=== PATIENT | female | born 1995 | race Caucasian/White ===

== ENCOUNTER 2016-05-28 14:06 | Inpatient (IN) | payer MEDICAID ==
[~2016-05-28] VITALS: Ht 162.6 cm; Wt 96.7 kg
[~2016-05-28 14:06] MED LIST: DIVA250T45 PO; DIVA500T35 PO; ZIPR80CA2 PO
[2016-05-28] MEDS ORDERED: HALOPERIDOL 5 MG TABLET PO PRN (18:30)
[2016-05-28] MEDS ORDERED: PNEUMOCOCCAL VACCINE POLYVALENT 0.5 ML VIAL [PPSV23] IM ONE (18:45)
[2016-05-28] MEDS ORDERED: INFLUENZA VIRUS VACCINE QVS 2016-17 (3YR+)/PF 60 MCG/0.5 ML SYRINGE IM ONE (18:45)
[2016-05-28 18:49] VITALS: BP 139/79
[2016-05-28 19:39] VITALS: BP 130/78
[2016-05-28] MEDS: ZOLPIDEM TARTRATE 10 MG TABLET PO PRN (22:00)
[2016-05-28] MEDS: LORazepam 2 MG TABLET PO PRN (22:34)
[2016-05-29 02:15] VITALS: BP 116/70
[2016-05-29] MEDS: LORazepam 2 MG TABLET PO PRN ×2 (02:49→10:50)
[2016-05-29] MEDS: ZIPRASIDONE HCL 80 MG CAPSULE PO SCH ×2 (06:40→16:39)
[2016-05-29 08:08] LABS: BASOPHILS % (AUTO) 0.3 % (0.0-2.0); EOSINOPHILS % (AUTO) 0.4 % (1.0-6.0); HEMATOCRIT 35.5 % (36-46); HEMOGLOBIN 12.1 g/dL (12.0-16.0); LYMPHOCYTES # (AUTO) 2.2 K/uL (1.0-4.8); LYMPHOCYTES % (AUTO) 26.8 % (22.0-44.0); MEAN CORPUSCULAR HEMOGLOBIN 30.9 pg (26.0-34.0); MEAN CORPUSCULAR HGB CONC 33.9 G/dL (31.0-37.0); MEAN CORPUSCULAR VOLUME 91 fL (80-100); MONOCYTES # (AUTO) 0.7 K/uL (0.1-1.0); NEUTROPHILS # (AUTO) 5.2 K/uL (1.8-7.7); NEUTROPHILS % (AUTO) 63.5 % (40.0-70.0); PLATELET COUNT (AUTO) 259 K/uL (150-450); RED CELL DISTRIBUTION WIDTH 13.2 % (11.5-14.5); WHITE BLOOD COUNT (AUTO) 8.3 K/uL (4.5-11.0)
[2016-05-29 08:25] LABS: HEMOGLOBIN A1C 5.3 % (4.5-6.2)
[2016-05-29 08:36] VITALS: BP 128/74
[2016-05-29 08:39] LABS: ALANINE AMINOTRANSFERASE 51 U/L (12-78); ALBUMIN 3.9 g/dL (3.4-5.0); ANION GAP 8 mmol/L (8-16); ASPARTATE AMINOTRANSFERASE 55 U/L (15-37); BILIRUBIN,TOTAL 0.3 mg/dL (0.1-1.0); CALCIUM, TOTAL 9.4 mg/dL (8.8-10.5); CARBON DIOXIDE 29 mmol/L (22-29); CHLORIDE 100 mmol/L (98-107); CHOL/HDL RATIO 2.4 (3.9-5.7); CREATININE 0.59 mg/dL (0.60-1.30); GLOMERULAR FILTR. RATE CALC > 60 mL/min (>60); POTASSIUM 4.2 mmol/L (3.5-5.1); SODIUM SERUM 137 mmol/L (136-145); THYROID STIMULATING HORMONE 5.31 uIU/mL (0.36-3.74); TOTAL PROTEIN, SERUM 8.2 g/dL (6.4-8.2); UREA NITROGEN, BLOOD 15 mg/dL (7-18)
[2016-05-29] MEDS ORDERED: IBUPROFEN 400 MG TABLET PO PRN (14:00)
[2016-05-29 16:10] VITALS: BP 117/61
[2016-05-30 00:50] VITALS: BP 114/77
[2016-05-30] MEDS: ZOLPIDEM TARTRATE 10 MG TABLET PO PRN ×2 (00:55→20:15)
[2016-05-30 02:40] VITALS: BP 116/74
[2016-05-30] MEDS: LORazepam 2 MG TABLET PO PRN ×2 (02:44→12:17)
[2016-05-30 05:05] VITALS: BP 117/69
[2016-05-30] MEDS: ACETAMINOPHEN 325 MG TABLET PO PRN ×2 (05:10→15:17)
[2016-05-30] MEDS: ZIPRASIDONE HCL 80 MG CAPSULE PO SCH ×2 (06:38→16:33)
[2016-05-30 08:38] VITALS: BP 113/69
[2016-05-30 15:19] VITALS: BP 110/72
[2016-05-30 16:14] VITALS: BP 119/71
[2016-05-31] MEDS: LORazepam 2 MG TABLET PO PRN (02:22)
[2016-05-31 04:43] VITALS: BP 121/75
[2016-05-31] MEDS: ZIPRASIDONE HCL 80 MG CAPSULE PO SCH (06:57)
[2016-05-31 09:00] VITALS: BP 112/61
== END 2016-05-31 13:20 | disposition home or self-care (01) | DRG 750 ==
LOC: B3A 18:24 → EDSTATUS 18:33 → B3A 20:17
DX: F25.0 Schizoaffective disorder, bipolar type (principal); R45.851 Suicidal ideations; I10 Essential (primary) hypertension; F84.0 Autistic disorder; E03.9 Hypothyroidism, unspecified; F19.10 Other psychoactive substance abuse, uncomplicated; Z91.5 Personal history of self-harm; Z71.51 Drug abuse counseling and surveillance of drug abuser
CPT/HCPCS: 83036; 84439; 84443; 87081; 90471

== ENCOUNTER 2016-12-30 21:15 | Emergency (ER) | payer MEDICAID, OTHER ==
[~2016-12-30] VITALS: Ht 162.6 cm; Wt 96.0 kg
[~2016-12-30 21:15] MED LIST changes: -DIVA250T45 PO; -DIVA500T35 PO
[2016-12-30] MEDS ORDERED: ACETAMINOPHEN 500 MG TABLET PO ONE (22:45)
[2016-12-30 23:52] VITALS: BP 128/69
== END 2016-12-31 00:20 | disposition home or self-care (01) ==
LOC: EMS 21:16
DX: S00.93XA Contusion of unspecified part of head, initial encounter (principal); F84.0 Autistic disorder; F41.9 Anxiety disorder, unspecified; F32.9 Major depressive disorder, single episode, unspecified; W22.8XXA Striking against or struck by other objects, initial encounter; Y93.89 Activity, other specified; Y92.89 Other specified places as the place of occurrence of the external cause; Y99.8 Other external cause status
CPT/HCPCS: 70450; 81025; 99284

== ENCOUNTER 2017-03-22 17:56 | Emergency (ER) | payer OTHER ==
[~2017-03-22] VITALS: Ht 165.1 cm; Wt 93.2 kg
[2017-03-22 18:59] LABS: BASOPHILS # (AUTO) 0.04 K/uL (0.00-0.20); BASOPHILS % (AUTO) 0.5 % (0.0-2.0); EOSINOPHILS # (AUTO) 0.11 K/uL (0.00-0.70); EOSINOPHILS % (AUTO) 1.25 % (1.0-6.0); HEMOGLOBIN 11.5 g/dL (12.0-16.0); LYMPHOCYTES # (AUTO) 2.6 K/uL (1.0-4.8); LYMPHOCYTES % (AUTO) 30.5 % (22.0-44.0); MEAN CORPUSCULAR HGB CONC 33.8 G/dL (31.0-37.0); MEAN CORPUSCULAR VOLUME 95 fL (80-100); MONOCYTES # (AUTO) 0.9 K/uL (0.1-1.0); MONOCYTES % (AUTO) 10.3 % (2.0-9.0); NEUTROPHILS # (AUTO) 4.9 K/uL (1.8-7.7); NEUTROPHILS % (AUTO) 57.5 % (40.0-70.0); PLATELET COUNT (AUTO) 241 K/uL (150-450); RED BLOOD CELL COUNT(AUTO) 3.59 MIL/uL (4.00-5.20); RED CELL DISTRIBUTION WIDTH 13.9 % (11.5-14.5); WHITE BLOOD COUNT (AUTO) 8.5 K/uL (4.5-11.0)
[2017-03-22 19:07] LABS: ANION GAP 9 mmol/L (8-16); CALCIUM, TOTAL 9.2 mg/dL (8.8-10.5); CARBON DIOXIDE 28 mmol/L (22-29); CHLORIDE 102 mmol/L (98-107); CREATININE 0.76 mg/dL (0.60-1.30); GLOMERULAR FILTR. RATE CALC > 60 mL/min (>60); POTASSIUM 3.6 mmol/L (3.5-5.1); SODIUM SERUM 139 mmol/L (136-145); UREA NITROGEN, BLOOD 18 mg/dL (7-18)
[2017-03-22 19:13] LABS: ALANINE AMINOTRANSFERASE 36 U/L (12-78); ALBUMIN 3.6 g/dL (3.4-5.0); ASPARTATE AMINOTRANSFERASE 88 U/L (15-37); BILIRUBIN,TOTAL 0.2 mg/dL (0.1-1.0); TOTAL PROTEIN, SERUM 7.6 g/dL (6.4-8.2)
[2017-03-22] MEDS ORDERED: HALOPERIDOL 5 MG TABLET PO ONE ×2 (19:45→20:30)
[2017-03-22] MEDS ORDERED: DiphenhydrAMINE HCL 50 MG CAPSULE PO ONE (19:45)
[2017-03-22] MEDS ORDERED: LORazepam 2 MG TABLET PO ONE ×2 (19:45→20:30)
[2017-03-22] MEDS ORDERED: IBUPROFEN 600 MG TABLET PO ONE (20:00)
[2017-03-22 20:19] VITALS: BP 128/67
[2017-03-22] MEDS ORDERED: DiphenhydrAMINE HCL 25 MG CAPSULE PO ONE (20:30)
== END 2017-03-22 20:30 | disposition home or self-care (01) ==
LOC: EMS 17:57
DX: S09.90XA Unspecified injury of head, initial encounter (principal); F41.9 Anxiety disorder, unspecified; F32.9 Major depressive disorder, single episode, unspecified; Z88.8 Allergy status to other drugs, medicaments and biological substances; Y04.2XXA Assault by strike against or bumped into by another person, initial encounter; Y93.89 Activity, other specified; Y92.89 Other specified places as the place of occurrence of the external cause; Y99.8 Other external cause status
CPT/HCPCS: 36415; 80053; 80307; 85025; 99284; G0480

== ENCOUNTER 2017-09-17 18:56 | Inpatient (IN) | payer MEDICAID, OTHER ==
[~2017-09-17] VITALS: Ht 162.6 cm; Wt 81.5 kg
[2017-09-17] MEDS ORDERED: HALOPERIDOL 5 MG TABLET PO ONE (20:45)
[2017-09-17] MEDS ORDERED: LORazepam 2 MG TABLET PO ONE (20:45)
[2017-09-17 20:56] LABS: BASOPHILS % (AUTO) 0.3 % (0.0-2.0); EOSINOPHILS % (AUTO) 0.7 % (1.0-6.0); HEMATOCRIT 36.1 % (36-46); HEMOGLOBIN 12.2 g/dL (12.0-16.0); LYMPHOCYTES % (AUTO) 26.3 % (22.0-44.0); MEAN CORPUSCULAR HEMOGLOBIN 31.3 pg (26.0-34.0); MEAN CORPUSCULAR HGB CONC 33.9 G/dL (31.0-37.0); MEAN CORPUSCULAR VOLUME 92 fL (80-100); MONOCYTES # (AUTO) 0.7 K/uL (0.1-1.0); MONOCYTES % (AUTO) 9.2 % (2.0-9.0); NEUTROPHILS # (AUTO) 4.7 K/uL (1.8-7.7); NEUTROPHILS % (AUTO) 63.5 % (40.0-70.0); PLATELET COUNT (AUTO) 237 K/uL (150-450); RED BLOOD CELL COUNT(AUTO) 3.91 MIL/uL (4.00-5.20)
[2017-09-17 21:08] LABS: ANION GAP 6 mmol/L (8-16); CALCIUM, TOTAL 8.8 mg/dL (8.8-10.5); CARBON DIOXIDE 30 mmol/L (22-29); CHLORIDE 102 mmol/L (98-107); CREATININE 0.72 mg/dL (0.60-1.30); GLOMERULAR FILTR. RATE CALC > 60 mL/min (>60); GLUCOSE,RANDOM 97 mg/dL (70-110); POTASSIUM 3.9 mmol/L (3.5-5.1); SODIUM SERUM 138 mmol/L (136-145); UREA NITROGEN, BLOOD 7 mg/dL (7-18)
[2017-09-17 21:12] LABS: ALANINE AMINOTRANSFERASE 22 U/L (12-78); ALBUMIN 3.8 g/dL (3.4-5.0); ALKALINE PHOSPHATASE 44 U/L (46-116); ASPARTATE AMINOTRANSFERASE 27 U/L (15-37); BILIRUBIN,TOTAL 0.2 mg/dL (0.1-1.0); TOTAL PROTEIN, SERUM 8.1 g/dL (6.4-8.2)
[2017-09-17 21:21] LABS: SALICYLATE 0.8 mg/dL (2.8-20.0)
[2017-09-17 21:22] LABS: ACETAMINOPHEN < 2 mcg/mL (10-30)
[2017-09-17 21:49] LABS: AMPHET/METH SCREEN,URINE NEGATIVE (NEGATIVE); BARBITURATE SCREEN, URINE NEGATIVE (NEGATIVE); BENZODIAZEPINES SCREEN,URINE NEGATIVE (NEGATIVE); CANNABINOID SCREEN,URINE NEGATIVE (NEGATIVE); COCAINE SCREEN,URINE NEGATIVE (NEGATIVE); METHADONE SCREEN, URINE NEGATIVE (NEGATIVE); OPIATE SCREEN,URINE NEGATIVE (NEGATIVE); PHENCYCLIDINE SCREEN,URINE NEGATIVE (NEGATIVE)
[2017-09-18 02:23] LABS: APPEARANCE,URINE CLEAR (CLEAR); BILIRUBIN,URINE NEGATIVE (NEGATIVE); GLUCOSE, URINE (UA) NEGATIVE (NEGATIVE); KETONES,URINE NEGATIVE (NEGATIVE); OCCULT BLOOD,URINE NEGATIVE (NEGATIVE); PROTEIN,URINE NEGATIVE (NEGATIVE)
[2017-09-18 02:24] LABS: LEUKOCYTE ESTERASE ,URINE NEGATIVE (NEGATIVE); NITRATE,URINE NEGATIVE (NEGATIVE)
[2017-09-18 03:20] VITALS: BP 101/70
[2017-09-18 08:47] LABS: THYROID STIMULATING HORMONE 4.75 uIU/mL (0.36-3.74)
[2017-09-18 09:48] VITALS: BP 112/65
[2017-09-18] MEDS: HALOPERIDOL 5 MG TABLET PO PRN (10:16)
[2017-09-18] MEDS: LORazepam 2 MG TABLET PO PRN (10:17)
[2017-09-18] MEDS ORDERED: DiphenhydrAMINE HCL 50 MG/ML VIAL ONE (10:39)
[2017-09-18] MEDS ORDERED: LORazepam 2 MG/ML VIAL ONE (10:39)
[2017-09-18] MEDS ORDERED: HALOPERIDOL LACTATE 5 MG/ML VIAL ONE (10:39)
[2017-09-18] MEDS ORDERED: DiphenhydrAMINE HCL 50 MG/ML VIAL IM ONE (10:45)
[2017-09-18] MEDS ORDERED: HALOPERIDOL LACTATE 5 MG/ML VIAL IM ONE (10:45)
[2017-09-18] MEDS ORDERED: LORazepam 2 MG/ML VIAL IM ONE (10:45)
[2017-09-18 16:00] VITALS: BP 108/77
[2017-09-19 09:00] VITALS: BP 118/72
[2017-09-19 19:50] VITALS: BP 112/74
[2017-09-20] VITALS: BP 115/77
[2017-09-20] MEDS: ZOLPIDEM TARTRATE 10 MG TABLET PO PRN ×2 (00:03→23:08)
[2017-09-20 09:58] VITALS: BP 134/73
[2017-09-20] MEDS: LORazepam 2 MG TABLET PO PRN (16:28)
[2017-09-20 17:16] VITALS: BP 130/64
[2017-09-20] MEDS: DIVALPROEX SODIUM 250 MG DR TABLET PO SCH (21:13)
[2017-09-21] MEDS: ZIPRASIDONE HCL 80 MG CAPSULE PO SCH ×2 (08:33→12:07)
[2017-09-21 09:39] VITALS: BP 107/67
[2017-09-21] MEDS ORDERED: ZIPRASIDONE HCL 80 MG CAPSULE PO SCH (12:00)
[2017-09-21 17:38] VITALS: BP 102/60
[2017-09-21] MEDS: DIVALPROEX SODIUM 250 MG DR TABLET PO SCH (20:17)
[2017-09-21] MEDS: ZOLPIDEM TARTRATE 10 MG TABLET PO PRN (21:28)
[2017-09-22 05:02] VITALS: BP 112/72
[2017-09-22] MEDS: ZIPRASIDONE HCL 80 MG CAPSULE PO SCH ×2 (08:23→11:57)
[2017-09-22 09:43] VITALS: BP 116/77
[2017-09-22] MEDS: LORazepam 2 MG TABLET PO PRN (09:55)
[2017-09-22 16:35] VITALS: BP 114/63
[2017-09-22] MEDS: DIVALPROEX SODIUM 250 MG DR TABLET PO SCH (20:22)
[2017-09-23 00:40] VITALS: BP 112/72
[2017-09-23] MEDS: ZOLPIDEM TARTRATE 10 MG TABLET PO PRN (00:41)
[2017-09-23] MEDS: LORazepam 2 MG TABLET PO PRN (03:49)
[2017-09-23 08:36] VITALS: BP 116/69
[2017-09-23] MEDS: ZIPRASIDONE HCL 80 MG CAPSULE PO SCH ×2 (08:49→11:54)
[2017-09-23 17:15] VITALS: BP 100/59
[2017-09-23] MEDS: DIVALPROEX SODIUM 250 MG DR TABLET PO SCH (20:01)
[2017-09-23] MEDS: TraZODone HCL 50 MG TABLET PO PRN (20:58)
[2017-09-24] MEDS: ZOLPIDEM TARTRATE 10 MG TABLET PO PRN (00:06)
[2017-09-24] MEDS: LORazepam 2 MG TABLET PO PRN (04:54)
[2017-09-24 04:57] VITALS: BP 117/65
[2017-09-24 08:05] VITALS: BP 126/71
[2017-09-24] MEDS: ZIPRASIDONE HCL 80 MG CAPSULE PO SCH ×2 (08:56→12:58)
[2017-09-24 17:00] VITALS: BP 98/45
[2017-09-24] MEDS: DIVALPROEX SODIUM 250 MG DR TABLET PO SCH (20:55)
[2017-09-25] MEDS: ZIPRASIDONE HCL 80 MG CAPSULE PO SCH ×2 (08:00→12:00)
[2017-09-25] MEDS: FLUoxetine HCL 20 MG CAPSULE PO SCH (11:45)
[2017-09-25] MEDS ORDERED: LORazepam 2 MG/ML VIAL ONE (13:02)
[2017-09-25] MEDS ORDERED: DiphenhydrAMINE HCL 50 MG/ML VIAL ONE (13:02)
[2017-09-25] MEDS ORDERED: HALOPERIDOL LACTATE 5 MG/ML VIAL ONE (13:02)
[2017-09-25] MEDS ORDERED: HALOPERIDOL LACTATE 5 MG/ML VIAL IM ONE ×2 (13:15→19:45)
[2017-09-25] MEDS ORDERED: DiphenhydrAMINE HCL 50 MG/ML VIAL IM ONE ×2 (13:15→19:45)
[2017-09-25] MEDS ORDERED: LORazepam 2 MG/ML VIAL IM ONE ×2 (13:15→19:45)
[2017-09-25 16:30] VITALS: BP 124/77
[2017-09-25] MEDS ORDERED: ACETAMINOPHEN 325 MG TABLET PO PRN (19:00)
[2017-09-25] MEDS ORDERED: IBUPROFEN 600 MG TABLET PO PRN (19:00)
[2017-09-25 19:21] VITALS: BP 121/76
[2017-09-25] MEDS: DIVALPROEX SODIUM 250 MG DR TABLET PO SCH (20:40)
[2017-09-25] MEDS: TraZODone HCL 50 MG TABLET PO PRN (20:41)
[2017-09-25] MEDS: ZOLPIDEM TARTRATE 10 MG TABLET PO PRN (21:44)
[2017-09-26] MEDS: ZIPRASIDONE HCL 80 MG CAPSULE PO SCH ×2 (08:49→12:00)
[2017-09-26] MEDS: FLUoxetine HCL 20 MG CAPSULE PO SCH (08:51)
[2017-09-26 09:41] VITALS: BP 105/64
[2017-09-26] MEDS: DIVALPROEX SODIUM 250 MG DR TABLET PO SCH (20:01)
[2017-09-26 22:14] VITALS: BP 112/61
[2017-09-27 00:10] VITALS: BP 117/75
[2017-09-27] MEDS: ZOLPIDEM TARTRATE 10 MG TABLET PO PRN (00:15)
[2017-09-27] MEDS: LORazepam 2 MG TABLET PO PRN ×2 (00:15→18:00)
[2017-09-27] MEDS: ZIPRASIDONE HCL 80 MG CAPSULE PO SCH ×2 (08:05→12:29)
[2017-09-27] MEDS: FLUoxetine HCL 20 MG CAPSULE PO SCH (08:30)
[2017-09-27 09:35] VITALS: BP 113/63
[2017-09-27 16:00] VITALS: BP 113/65
[2017-09-27] MEDS: HALOPERIDOL 5 MG TABLET PO PRN (16:33)
[2017-09-27] MEDS: DIVALPROEX SODIUM 250 MG DR TABLET PO SCH (20:35)
[2017-09-28] MEDS: LORazepam 2 MG TABLET PO PRN (01:30)
[2017-09-28] MEDS: ZOLPIDEM TARTRATE 10 MG TABLET PO PRN (01:30)
[2017-09-28 08:20] VITALS: BP 123/76
[2017-09-28] MEDS: ZIPRASIDONE HCL 80 MG CAPSULE PO SCH ×3 (08:39→12:48)
[2017-09-28] MEDS: FLUoxetine HCL 20 MG CAPSULE PO SCH ×2 (08:42→09:00)
[2017-09-28] MEDS: DIVALPROEX SODIUM 250 MG DR TABLET PO SCH (21:08)
[2017-09-28 21:29] VITALS: BP 130/81
[2017-09-29 08:27] VITALS: BP 124/70
[2017-09-29] MEDS: ZIPRASIDONE HCL 80 MG CAPSULE PO SCH ×2 (09:19→12:18)
[2017-09-29] MEDS: FLUoxetine HCL 20 MG CAPSULE PO SCH (09:19)
[2017-09-29] MEDS ORDERED: FLUO-191 PO (12:58)
[2017-09-29] MEDS ORDERED: DIVA500T35 PO (12:59)
== END 2017-09-29 17:15 | disposition home or self-care (01) | DRG 750 ==
LOC: EMS 18:57 → 3EI 09-18 01:45 → 3EC 09-25 15:22
PROVIDERS: ADMIT Psychiatry & Neurology Psychiatry; ATTEND Psychiatry & Neurology Psychiatry
DX: F25.1 Schizoaffective disorder, depressive type (principal); F79 Unspecified intellectual disabilities; F32.9 Major depressive disorder, single episode, unspecified; F84.0 Autistic disorder; F41.9 Anxiety disorder, unspecified; E03.9 Hypothyroidism, unspecified; Z88.8 Allergy status to other drugs, medicaments and biological substances; Z79.899 Other long term (current) drug therapy
CPT/HCPCS: 84439; 84443; 93005; 99285; G0480; G0481; J1200; J1630; J2060

== ENCOUNTER 2017-12-08 21:59 | Emergency (ER) | payer MEDICAID, OTHER ==
[~2017-12-08] VITALS: Ht 167.6 cm; Wt 90.9 kg
[~2017-12-08 21:59] MED LIST changes: +DIVA-78 PO; +FLUO-191 PO
[2017-12-08] MEDS ORDERED: TRAZ-219 PO (22:05)
[2017-12-08] MEDS ORDERED: SODIUM CHLORIDE 0.9% 1,000 ML IV ONE (22:45)
[2017-12-08 22:46] LABS: BASOPHILS % (AUTO) 0.4 % (0.0-2.0); EOSINOPHILS % (AUTO) 0.6 % (1.0-6.0); HEMATOCRIT 34.5 % (36-46); HEMOGLOBIN 11.9 g/dL (12.0-16.0); LYMPHOCYTES % (AUTO) 31.5 % (22.0-44.0); MEAN CORPUSCULAR HEMOGLOBIN 31.6 pg (26.0-34.0); MEAN CORPUSCULAR HGB CONC 34.4 G/dL (31.0-37.0); MEAN CORPUSCULAR VOLUME 92 fL (80-100); MONOCYTES # (AUTO) 0.9 K/uL (0.1-1.0); MONOCYTES % (AUTO) 9.6 % (2.0-9.0); NEUTROPHILS # (AUTO) 5.6 K/uL (1.8-7.7); NEUTROPHILS % (AUTO) 57.9 % (40.0-70.0); PLATELET COUNT (AUTO) 216 K/uL (150-450); RED BLOOD CELL COUNT(AUTO) 3.75 MIL/uL (4.00-5.20); RED CELL DISTRIBUTION WIDTH 13.4 % (11.5-14.5)
[2017-12-08 22:57] LABS: ANION GAP 7 mmol/L (8-16); CALCIUM, TOTAL 8.6 mg/dL (8.8-10.5); CARBON DIOXIDE 28 mmol/L (22-29); CHLORIDE 104 mmol/L (98-107); GLOMERULAR FILTR. RATE CALC > 60 mL/min (>60); GLUCOSE,RANDOM 114 mg/dL (70-110); POTASSIUM 3.3 mmol/L (3.5-5.1); SODIUM SERUM 139 mmol/L (136-145); UREA NITROGEN, BLOOD 13 mg/dL (7-18)
[2017-12-08 23:03] LABS: ALANINE AMINOTRANSFERASE 18 U/L (12-78); ALBUMIN 3.3 g/dL (3.4-5.0); ALKALINE PHOSPHATASE 37 U/L (46-116); ASPARTATE AMINOTRANSFERASE 16 U/L (15-37); BILIRUBIN,TOTAL 0.2 mg/dL (0.1-1.0); TOTAL PROTEIN, SERUM 7.3 g/dL (6.4-8.2); VALPROIC ACID 54 mcg/mL (50-100)
[2017-12-08 23:16] LABS: ACETAMINOPHEN < 2 mcg/mL (10-30)
[2017-12-08 23:27] LABS: SALICYLATE < 2.8 mg/dL (2.8-20.0)
[2017-12-09 01:15] LABS: AMPHET/METH SCREEN,URINE NEGATIVE (NEGATIVE); BARBITURATE SCREEN, URINE NEGATIVE (NEGATIVE); BENZODIAZEPINES SCREEN,URINE NEGATIVE (NEGATIVE); CANNABINOID SCREEN,URINE NEGATIVE (NEGATIVE); COCAINE SCREEN,URINE NEGATIVE (NEGATIVE); METHADONE SCREEN, URINE NEGATIVE (NEGATIVE); OPIATE SCREEN,URINE NEGATIVE (NEGATIVE); PHENCYCLIDINE SCREEN,URINE NEGATIVE (NEGATIVE)
[2017-12-09] MEDS ORDERED: SODIUM CHLORIDE 0.9% 1,000 ML IV ONE (03:45)
[2017-12-09 04:46] VITALS: BP 110/61
== END 2017-12-09 05:15 | disposition home or self-care (01) ==
LOC: EMS 22:01
DX: T42.6X1A Poisoning by other antiepileptic and sedative-hypnotic drugs, accidental (unintentional), initial encounter (principal); T43.591A Poisoning by other antipsychotics and neuroleptics, accidental (unintentional), initial encounter; F41.9 Anxiety disorder, unspecified; F32.9 Major depressive disorder, single episode, unspecified; Z88.8 Allergy status to other drugs, medicaments and biological substances; Y92.89 Other specified places as the place of occurrence of the external cause
CPT/HCPCS: 36415; 80053; 80164; 80307; 84703; 85025; 93005; 93041; 99291; G0480 ×2; G0481; J7030 ×2

== ENCOUNTER 2018-04-16 11:19 | Emergency (ER) | payer OTHER ==
[~2018-04-16] VITALS: Ht 167.6 cm; Wt 90.9 kg
[~2018-04-16 11:19] MED LIST changes: -FLUO-191 PO; +TRAZ-219 PO
[2018-04-16 13:19] VITALS: BP 116/64
== END 2018-04-16 13:36 | disposition home or self-care (01) ==
LOC: EDUNIT# 11:19 → EMS 11:20
DX: F84.0 Autistic disorder (principal); F32.9 Major depressive disorder, single episode, unspecified; F41.9 Anxiety disorder, unspecified; Z76.0 Encounter for issue of repeat prescription; Z88.8 Allergy status to other drugs, medicaments and biological substances

== ENCOUNTER 2018-09-24 22:11 | Emergency (ER) | payer OTHER ==
[~2018-09-24] VITALS: Ht 167.6 cm; Wt 72.7 kg
[~2018-09-24 22:11] MED LIST changes: -TRAZ-219 PO; +TRAZ-252 PO
[2018-09-24] MEDS ORDERED: HALO5TAB2 PO (22:27)
[2018-09-24 22:40] LABS: BASOPHILS % (AUTO) 0.3 % (0.0-2.0); EOSINOPHILS % (AUTO) 0.6 % (1.0-6.0); HEMATOCRIT 34.6 % (36-46); HEMOGLOBIN 11.7 g/dL (12.0-16.0); LYMPHOCYTES % (AUTO) 30.9 % (22.0-44.0); MEAN CORPUSCULAR HEMOGLOBIN 30.6 pg (26.0-34.0); MEAN CORPUSCULAR HGB CONC 33.8 G/dL (31.0-37.0); MEAN CORPUSCULAR VOLUME 91 fL (80-100); MONOCYTES # (AUTO) 1.1 K/uL (0.1-1.0); MONOCYTES % (AUTO) 11.6 % (2.0-9.0); NEUTROPHILS # (AUTO) 5.5 K/uL (1.8-7.7); NEUTROPHILS % (AUTO) 56.6 % (40.0-70.0); PLATELET COUNT (AUTO) 226 K/uL (150-450); RED BLOOD CELL COUNT(AUTO) 3.82 MIL/uL (4.00-5.20)
[2018-09-24 22:49] LABS: ANION GAP 9 mmol/L (8-16); CALCIUM, TOTAL 8.7 mg/dL (8.8-10.5); CARBON DIOXIDE 27 mmol/L (22-29); CHLORIDE 106 mmol/L (98-107); CREATININE 0.55 mg/dL (0.60-1.30); GLOMERULAR FILTR. RATE CALC > 60 mL/min (>60); GLUCOSE,RANDOM 147 mg/dL (70-110); POTASSIUM 3.3 mmol/L (3.5-5.1); SODIUM SERUM 142 mmol/L (136-145); UREA NITROGEN, BLOOD 8 mg/dL (7-18)
[2018-09-24 22:56] LABS: AMPHET/METH SCREEN,URINE NEGATIVE (NEGATIVE); BARBITURATE SCREEN, URINE NEGATIVE (NEGATIVE); BENZODIAZEPINES SCREEN,URINE NEGATIVE (NEGATIVE); CANNABINOID SCREEN,URINE NEGATIVE (NEGATIVE); COCAINE SCREEN,URINE NEGATIVE (NEGATIVE); METHADONE SCREEN, URINE NEGATIVE (NEGATIVE); OPIATE SCREEN,URINE NEGATIVE (NEGATIVE); PHENCYCLIDINE SCREEN,URINE NEGATIVE (NEGATIVE)
[2018-09-24 23:00] LABS: ALANINE AMINOTRANSFERASE 19 U/L (12-78); ALBUMIN 3.4 g/dL (3.4-5.0); ALKALINE PHOSPHATASE 67 U/L (46-116); ASPARTATE AMINOTRANSFERASE 22 U/L (15-37); BILIRUBIN,TOTAL 0.3 mg/dL (0.1-1.0); HCG,QUANTITATIVE < 1 mIU/mL (0-6); TOTAL PROTEIN, SERUM 7.9 g/dL (6.4-8.2)
[2018-09-24 23:30] VITALS: BP 121/78
[2018-09-24] MEDS ORDERED: ONDANSETRON HCL 4 MG TABLET PO ONE (23:30)
== END 2018-09-24 23:41 | disposition home or self-care (01) ==
LOC: EMS 22:13
DX: F10.129 Alcohol abuse with intoxication, unspecified (principal); F41.9 Anxiety disorder, unspecified; F32.9 Major depressive disorder, single episode, unspecified; F39 Unspecified mood [affective] disorder; F84.0 Autistic disorder; Z79.899 Other long term (current) drug therapy; Z88.8 Allergy status to other drugs, medicaments and biological substances; Y90.6 Blood alcohol level of 120-199 mg/100 ml
CPT/HCPCS: 36415; 80053; 80307; 84702; 85025; 99283; G0480; Q0162; 51701

== ENCOUNTER 2018-12-19 22:25 | Inpatient (IN) | payer MEDICAID, OTHER ==
[~2018-12-19] VITALS: Ht 165.1 cm; Wt 102.5 kg
[~2018-12-19 22:25] MED LIST changes: +HALO5TAB2 PO
[2018-12-19 23:13] LABS: BASOPHILS % (AUTO) 0.3 % (0.0-2.0); EOSINOPHILS % (AUTO) 0.9 % (1.0-6.0); HEMATOCRIT 33.8 % (36-46); HEMOGLOBIN 11.4 g/dL (12.0-16.0); LYMPHOCYTES # (AUTO) 3.1 K/uL (1.0-4.8); LYMPHOCYTES % (AUTO) 32.3 % (22.0-44.0); MEAN CORPUSCULAR HEMOGLOBIN 32.1 pg (26.0-34.0); MEAN CORPUSCULAR HGB CONC 33.7 G/dL (31.0-37.0); MEAN CORPUSCULAR VOLUME 95 fL (80-100); MONOCYTES % (AUTO) 10.7 % (2.0-9.0); NEUTROPHILS # (AUTO) 5.4 K/uL (1.8-7.7); NEUTROPHILS % (AUTO) 55.8 % (40.0-70.0); PLATELET COUNT (AUTO) 272 K/uL (150-450); RED BLOOD CELL COUNT(AUTO) 3.55 MIL/uL (4.00-5.20); RED CELL DISTRIBUTION WIDTH 13.8 % (11.5-14.5)
[2018-12-19 23:25] LABS: ANION GAP 10 mmol/L (8-16); CALCIUM, TOTAL 9.1 mg/dL (8.8-10.5); CARBON DIOXIDE 24 mmol/L (22-29); CHLORIDE 104 mmol/L (98-107); CREATININE 0.62 mg/dL (0.60-1.30); GLOMERULAR FILTR. RATE CALC > 60 mL/min (>60); GLUCOSE,RANDOM 123 mg/dL (70-110); POTASSIUM 3.5 mmol/L (3.5-5.1); SODIUM SERUM 138 mmol/L (136-145); UREA NITROGEN, BLOOD 13 mg/dL (7-18)
[2018-12-19 23:31] LABS: ALANINE AMINOTRANSFERASE 23 U/L (12-78); ALBUMIN 3.5 g/dL (3.4-5.0); ALKALINE PHOSPHATASE 55 U/L (46-116); ASPARTATE AMINOTRANSFERASE 21 U/L (15-37); BILIRUBIN,TOTAL 0.2 mg/dL (0.1-1.0); TOTAL PROTEIN, SERUM 7.7 g/dL (6.4-8.2)
[2018-12-20] MEDS ORDERED: 0.9% SODIUM CHLORIDE 10 ML SYRINGE IVP PRN (01:00)
[2018-12-20 01:15] LABS: HCG,QUANTITATIVE < 1 mIU/mL (0-6)
[2018-12-20 01:21] LABS: APPEARANCE,URINE CLOUDY (CLEAR); BILIRUBIN,URINE NEGATIVE (NEGATIVE); GLUCOSE, URINE (UA) NEGATIVE (NEGATIVE); KETONES,URINE 15 mg/dL (NEGATIVE); LEUKOCYTE ESTERASE ,URINE NEGATIVE (NEGATIVE); NITRATE,URINE NEGATIVE (NEGATIVE); OCCULT BLOOD,URINE TRACE (NEGATIVE); PROTEIN,URINE NEGATIVE (NEGATIVE)
[2018-12-20 01:27] LABS: AMPHET/METH SCREEN,URINE NEGATIVE (NEGATIVE); BARBITURATE SCREEN, URINE NEGATIVE (NEGATIVE); BENZODIAZEPINES SCREEN,URINE NEGATIVE (NEGATIVE); CANNABINOID SCREEN,URINE NEGATIVE (NEGATIVE); COCAINE SCREEN,URINE NEGATIVE (NEGATIVE); METHADONE SCREEN, URINE NEGATIVE (NEGATIVE); OPIATE SCREEN,URINE NEGATIVE (NEGATIVE)
[2018-12-20 01:28] LABS: PHENCYCLIDINE SCREEN,URINE NEGATIVE (NEGATIVE)
[2018-12-20 01:38] LABS: BACTERIA,URINE Few /HPF (None Seen); RBC,URINE 0-2 /HPF (0-2); SQUAMOUS EPITHELIAL CELL,UR Few /LPF (None Seen); WBC,URINE 0-2 /HPF (0-5)
[2018-12-20] MEDS: ACETAMINOPHEN 325 MG TABLET PO PRN ×3 (03:00→17:14)
[2018-12-20 03:33] VITALS: BP 117/81
[2018-12-20] MEDS: LORazepam 2 MG TABLET PO PRN ×2 (03:42→17:13)
[2018-12-20 08:15] VITALS: BP 128/67
[2018-12-20] MEDS: DIVALPROEX SODIUM 250 MG DR TABLET PO SCH (16:12)
[2018-12-20] MEDS: ZIPRASIDONE HCL 80 MG CAPSULE PO SCH (16:12)
[2018-12-20 16:42] VITALS: BP 110/71
[2018-12-20 17:13] VITALS: BP 129/73
[2018-12-20] MEDS: TraZODone HCL 50 MG TABLET PO SCH (20:19)
[2018-12-21 00:53] VITALS: BP 107/64
[2018-12-21] MEDS: ZIPRASIDONE HCL 80 MG CAPSULE PO SCH ×2 (06:53→16:34)
[2018-12-21] MEDS: DIVALPROEX SODIUM 250 MG DR TABLET PO SCH (08:21)
[2018-12-21 08:28] VITALS: BP 125/84
[2018-12-21 08:33] LABS: FREE T4 (FREE THYROXINE) 1.01 ng/dL (0.76-1.46); THYROID STIMULATING HORMONE 4.79 uIU/mL (0.36-3.74)
[2018-12-21] MEDS ORDERED: DIVA-76 PO (13:39)
[2018-12-21 16:02] VITALS: BP 122/84
[2018-12-21] MEDS: DIVALPROEX SODIUM 500 MG DR TABLET PO SCH (16:34)
[2018-12-21] MEDS: FERROUS SULFATE 325 MG EC TABLET PO SCH (16:34)
[2018-12-21] MEDS: LORazepam 2 MG TABLET PO PRN (16:35)
[2018-12-21] MEDS: TraZODone HCL 50 MG TABLET PO SCH (20:20)
[2018-12-22 02:48] VITALS: BP 120/81
[2018-12-22] MEDS: LORazepam 2 MG TABLET PO PRN ×2 (05:16→15:26)
[2018-12-22] MEDS: ZIPRASIDONE HCL 80 MG CAPSULE PO SCH ×2 (06:22→16:01)
[2018-12-22] MEDS: FERROUS SULFATE 325 MG EC TABLET PO SCH ×2 (06:22→16:01)
[2018-12-22] MEDS ORDERED: CloNIDine HCL 0.1 MG TABLET PO PRN (06:45)
[2018-12-22] MEDS ORDERED: NICOTINE 14 MG/24 HOUR PATCH TD PRN (06:45)
[2018-12-22] MEDS ORDERED: ALBUTEROL SULFATE HFA 90 MCG/PUFF 8 GM INHALER IH PRN (06:45)
[2018-12-22] MEDS ORDERED: GuaiFENesin/D-METHORPHAN [SUGAR-FREE] 200-20MG/10 ML SYRUP UDCUP PO PRN (06:45)
[2018-12-22] MEDS ORDERED: MAGNESIUM HYDROXIDE SUSPENSION 30 ML UDCUP PO PRN (06:45)
[2018-12-22] MEDS ORDERED: ONDANSETRON HCL 4 MG TABLET PO PRN (06:45)
[2018-12-22] MEDS ORDERED: PETROLATUM,WHITE 28 GM JELLY TP PRN (06:45)
[2018-12-22] MEDS ORDERED: MAG HYDROX/AL HYDROX/SIMETH ES 30 ML SUSPENSION UDCUP PO PRN (06:45)
[2018-12-22] MEDS ORDERED: DOCUSATE SODIUM 100 MG CAPSULE PO PRN (06:45)
[2018-12-22] MEDS ORDERED: LOPERAMIDE HCL 2 MG CAPSULE PO PRN (06:45)
[2018-12-22] MEDS: DIVALPROEX SODIUM 500 MG DR TABLET PO SCH ×2 (08:06→16:01)
[2018-12-22 08:07] VITALS: BP 123/60
[2018-12-22 16:01] VITALS: BP 135/61
[2018-12-22 17:17] VITALS: BP 126/71
[2018-12-22] MEDS: ACETAMINOPHEN 325 MG TABLET PO PRN (17:17)
[2018-12-22 17:26] VITALS: BP 138/87
[2018-12-22] MEDS: TraZODone HCL 50 MG TABLET PO SCH (20:16)
[2018-12-23] MEDS: ZOLPIDEM TARTRATE 10 MG TABLET PO PRN ×2 (00:18→20:46)
[2018-12-23 00:26] VITALS: BP 137/98
[2018-12-23] MEDS: ZIPRASIDONE HCL 80 MG CAPSULE PO SCH ×2 (06:51→16:14)
[2018-12-23] MEDS: FERROUS SULFATE 325 MG EC TABLET PO SCH ×2 (06:51→16:14)
[2018-12-23 08:00] VITALS: BP 105/58
[2018-12-23] MEDS: DIVALPROEX SODIUM 500 MG DR TABLET PO SCH ×2 (08:24→16:14)
[2018-12-23 16:09] VITALS: BP 139/81
[2018-12-23] MEDS: LORazepam 2 MG TABLET PO PRN (17:21)
[2018-12-23] MEDS: IBUPROFEN 400 MG TABLET PO PRN (17:54)
[2018-12-23] MEDS: TraZODone HCL 50 MG TABLET PO SCH (20:45)
[2018-12-24 04:39] VITALS: BP 103/64
[2018-12-24] MEDS: FERROUS SULFATE 325 MG EC TABLET PO SCH ×2 (07:00→16:33)
[2018-12-24] MEDS: ZIPRASIDONE HCL 80 MG CAPSULE PO SCH ×2 (07:07→16:32)
[2018-12-24] MEDS ORDERED: LORazepam 2 MG/ML VIAL ONE (07:53)
[2018-12-24] MEDS ORDERED: HALOPERIDOL LACTATE 5 MG/ML VIAL ONE (07:53)
[2018-12-24] MEDS ORDERED: DiphenhydrAMINE HCL 50 MG/ML VIAL ONE (07:54)
[2018-12-24] MEDS ORDERED: HALOPERIDOL LACTATE 5 MG/ML VIAL IM ONE (08:00)
[2018-12-24] MEDS ORDERED: DiphenhydrAMINE HCL 50 MG/ML VIAL IM ONE (08:00)
[2018-12-24] MEDS ORDERED: LORazepam 2 MG/ML VIAL IM ONE (08:00)
[2018-12-24 08:19] VITALS: BP 149/92
[2018-12-24] MEDS: DIVALPROEX SODIUM 500 MG DR TABLET PO SCH ×2 (08:21→16:33)
[2018-12-24 08:30] VITALS: BP 113/66
[2018-12-24] MEDS: ACETAMINOPHEN 325 MG TABLET PO PRN (15:00)
[2018-12-24 16:21] VITALS: BP 120/86
[2018-12-24] MEDS: IBUPROFEN 400 MG TABLET PO PRN (17:11)
[2018-12-24] MEDS: TraZODone HCL 50 MG TABLET PO SCH (20:55)
[2018-12-25 02:07] VITALS: BP 116/73
[2018-12-25] MEDS: ZOLPIDEM TARTRATE 10 MG TABLET PO PRN ×2 (02:10→20:05)
[2018-12-25] MEDS: LORazepam 2 MG TABLET PO PRN ×2 (02:10→18:59)
[2018-12-25] MEDS: ZIPRASIDONE HCL 80 MG CAPSULE PO SCH ×2 (07:07→16:02)
[2018-12-25] MEDS: FERROUS SULFATE 325 MG EC TABLET PO SCH ×2 (07:08→16:02)
[2018-12-25] MEDS: DIVALPROEX SODIUM 500 MG DR TABLET PO SCH ×2 (08:11→16:02)
[2018-12-25 14:38] VITALS: BP 116/62
[2018-12-25 16:04] VITALS: BP 141/79
[2018-12-25 17:52] VITALS: BP 138/72
[2018-12-25] MEDS: IBUPROFEN 400 MG TABLET PO PRN (17:52)
[2018-12-25] MEDS: TraZODone HCL 50 MG TABLET PO SCH (20:04)
[2018-12-26 03:15] VITALS: BP 140/80
[2018-12-26] MEDS: LORazepam 2 MG TABLET PO PRN ×2 (05:30→23:09)
[2018-12-26] MEDS: ZIPRASIDONE HCL 80 MG CAPSULE PO SCH ×2 (06:31→16:21)
[2018-12-26] MEDS: FERROUS SULFATE 325 MG EC TABLET PO SCH ×2 (06:31→16:21)
[2018-12-26] MEDS: DIVALPROEX SODIUM 500 MG DR TABLET PO SCH ×2 (08:04→16:21)
[2018-12-26 08:16] VITALS: BP 132/81
[2018-12-26] MEDS: TraZODone HCL 50 MG TABLET PO SCH (20:08)
[2018-12-27] MEDS: FERROUS SULFATE 325 MG EC TABLET PO SCH ×2 (06:45→16:14)
[2018-12-27] MEDS: ZIPRASIDONE HCL 80 MG CAPSULE PO SCH ×2 (06:45→16:14)
[2018-12-27 08:28] VITALS: BP 117/70
[2018-12-27] MEDS: DIVALPROEX SODIUM 500 MG DR TABLET PO SCH ×2 (09:26→16:14)
[2018-12-27] MEDS: LORazepam 2 MG TABLET PO PRN ×2 (09:26→17:42)
[2018-12-27] MEDS ORDERED: DiphenhydrAMINE HCL 50 MG/ML VIAL IM ONE (12:30)
[2018-12-27] MEDS ORDERED: HALOPERIDOL LACTATE 5 MG/ML VIAL IM ONE (12:30)
[2018-12-27] MEDS ORDERED: LORazepam 2 MG/ML VIAL IM ONE (12:30)
[2018-12-27] MEDS ORDERED: LORazepam 2 MG/ML VIAL ONE (12:32)
[2018-12-27] MEDS ORDERED: HALOPERIDOL LACTATE 5 MG/ML VIAL ONE (12:32)
[2018-12-27] MEDS ORDERED: DiphenhydrAMINE HCL 50 MG/ML VIAL ONE (12:33)
[2018-12-27 13:05] VITALS: BP 97/57
[2018-12-27 16:10] VITALS: BP 127/74
[2018-12-27] MEDS: TraZODone HCL 50 MG TABLET PO SCH (20:11)
[2018-12-28] MEDS: ZIPRASIDONE HCL 80 MG CAPSULE PO SCH ×2 (06:39→16:40)
[2018-12-28] MEDS: FERROUS SULFATE 325 MG EC TABLET PO SCH ×2 (06:39→16:40)
[2018-12-28] MEDS ORDERED: DiphenhydrAMINE HCL 50 MG/ML VIAL IM ONE ×2 (08:00→15:00)
[2018-12-28] MEDS ORDERED: HALOPERIDOL LACTATE 5 MG/ML VIAL IM ONE ×2 (08:00→15:00)
[2018-12-28] MEDS ORDERED: LORazepam 2 MG/ML VIAL IM ONE ×2 (08:00→15:00)
[2018-12-28] MEDS: IBUPROFEN 400 MG TABLET PO PRN (08:38)
[2018-12-28 08:45] VITALS: BP 103/69
[2018-12-28] MEDS: DIVALPROEX SODIUM 500 MG DR TABLET PO SCH ×2 (09:42→16:40)
[2018-12-28] MEDS: HALOPERIDOL 5 MG TABLET PO PRN ×2 (16:40→23:00)
[2018-12-28] MEDS: LORazepam 2 MG TABLET PO PRN ×2 (16:40→23:00)
[2018-12-28] MEDS: TraZODone HCL 50 MG TABLET PO SCH (20:35)
[2018-12-28] MEDS: ZOLPIDEM TARTRATE 10 MG TABLET PO PRN (20:35)
[2018-12-29 03:26] VITALS: BP 99/65
[2018-12-29] MEDS: ACETAMINOPHEN 325 MG TABLET PO PRN (03:34)
[2018-12-29] MEDS: LORazepam 2 MG TABLET PO PRN ×3 (04:05→16:50)
[2018-12-29] MEDS: FERROUS SULFATE 325 MG EC TABLET PO SCH ×2 (06:55→16:50)
[2018-12-29] MEDS: ZIPRASIDONE HCL 80 MG CAPSULE PO SCH ×2 (06:55→16:50)
[2018-12-29 08:00] VITALS: BP 103/75
[2018-12-29] MEDS: DIVALPROEX SODIUM 500 MG DR TABLET PO SCH ×2 (08:26→16:50)
[2018-12-29 12:55] VITALS: BP 110/72
[2018-12-29] MEDS: IBUPROFEN 400 MG TABLET PO PRN (12:57)
[2018-12-29 16:07] VITALS: BP 120/72
[2018-12-29] MEDS: TraZODone HCL 50 MG TABLET PO SCH (20:20)
[2018-12-29] MEDS: ZOLPIDEM TARTRATE 10 MG TABLET PO PRN (20:20)
[2018-12-30 02:30] VITALS: BP 122/78
[2018-12-30] MEDS: ZIPRASIDONE HCL 80 MG CAPSULE PO SCH ×2 (06:44→16:09)
[2018-12-30] MEDS: FERROUS SULFATE 325 MG EC TABLET PO SCH ×2 (06:44→16:09)
[2018-12-30 08:06] VITALS: BP 131/61
[2018-12-30] MEDS: DIVALPROEX SODIUM 500 MG DR TABLET PO SCH ×2 (08:35→16:09)
[2018-12-30] MEDS: LORazepam 2 MG TABLET PO PRN ×2 (08:37→17:44)
[2018-12-30 16:03] VITALS: BP 135/75
[2018-12-30] MEDS: HALOPERIDOL 5 MG TABLET PO PRN (17:44)
[2018-12-30 18:44] VITALS: BP 118/78
[2018-12-30] MEDS: TraZODone HCL 50 MG TABLET PO SCH (20:02)
[2018-12-31 02:56] VITALS: BP 124/69
[2018-12-31] MEDS: LORazepam 2 MG TABLET PO PRN ×3 (02:57→16:25)
[2018-12-31] MEDS: ZOLPIDEM TARTRATE 10 MG TABLET PO PRN ×2 (02:57→20:48)
[2018-12-31] MEDS: FERROUS SULFATE 325 MG EC TABLET PO SCH ×2 (06:55→17:15)
[2018-12-31] MEDS: ZIPRASIDONE HCL 80 MG CAPSULE PO SCH ×2 (06:55→17:15)
[2018-12-31 08:04] VITALS: BP 102/72
[2018-12-31] MEDS: DIVALPROEX SODIUM 500 MG DR TABLET PO SCH ×2 (08:25→17:15)
[2018-12-31 17:44] VITALS: BP 114/68
[2018-12-31] MEDS: TraZODone HCL 50 MG TABLET PO SCH (20:12)
[2019-01-01 05:45] VITALS: BP 128/75
[2019-01-01] MEDS: FERROUS SULFATE 325 MG EC TABLET PO SCH ×2 (06:35→16:02)
[2019-01-01] MEDS: ZIPRASIDONE HCL 80 MG CAPSULE PO SCH ×2 (06:35→16:02)
[2019-01-01 08:15] VITALS: BP 128/88
[2019-01-01] MEDS: DIVALPROEX SODIUM 500 MG DR TABLET PO SCH ×2 (09:09→16:02)
[2019-01-01] MEDS: LORazepam 2 MG TABLET PO PRN ×2 (09:10→18:20)
[2019-01-01] MEDS: HALOPERIDOL 5 MG TABLET PO PRN ×2 (12:13→18:21)
[2019-01-01 16:00] VITALS: BP 128/63
[2019-01-01 17:50] VITALS: BP 125/71
[2019-01-01] MEDS: ACETAMINOPHEN 325 MG TABLET PO PRN (17:50)
[2019-01-01] MEDS: TraZODone HCL 50 MG TABLET PO SCH (21:00)
[2019-01-02 02:53] VITALS: BP 117/64
[2019-01-02] MEDS: FERROUS SULFATE 325 MG EC TABLET PO SCH ×2 (06:35→16:12)
[2019-01-02] MEDS: ZIPRASIDONE HCL 80 MG CAPSULE PO SCH ×2 (06:35→16:12)
[2019-01-02 08:06] VITALS: BP 104/60
[2019-01-02] MEDS: DIVALPROEX SODIUM 500 MG DR TABLET PO SCH ×2 (08:19→16:12)
[2019-01-02 16:02] VITALS: BP 131/77
[2019-01-02] MEDS: TraZODone HCL 50 MG TABLET PO SCH (20:38)
[2019-01-03] MEDS: LORazepam 2 MG TABLET PO PRN ×2 (02:59→16:52)
[2019-01-03 03:00] VITALS: BP 140/89
[2019-01-03] MEDS: ZIPRASIDONE HCL 80 MG CAPSULE PO SCH ×2 (06:45→16:18)
[2019-01-03] MEDS: FERROUS SULFATE 325 MG EC TABLET PO SCH ×2 (06:45→16:18)
[2019-01-03] MEDS: DIVALPROEX SODIUM 500 MG DR TABLET PO SCH ×2 (09:34→16:18)
[2019-01-03 09:40] VITALS: BP 105/63
[2019-01-03 16:02] VITALS: BP 131/82
[2019-01-03] MEDS: TraZODone HCL 50 MG TABLET PO SCH (20:28)
[2019-01-04 06:33] VITALS: BP 127/70
[2019-01-04] MEDS: FERROUS SULFATE 325 MG EC TABLET PO SCH ×2 (06:45→16:37)
[2019-01-04] MEDS: ZIPRASIDONE HCL 80 MG CAPSULE PO SCH ×2 (06:45→16:37)
[2019-01-04 08:10] VITALS: BP 129/74
[2019-01-04] MEDS: DIVALPROEX SODIUM 500 MG DR TABLET PO SCH ×2 (08:14→16:37)
[2019-01-04] MEDS: ACETAMINOPHEN 325 MG TABLET PO PRN (12:33)
[2019-01-04 16:05] VITALS: BP 136/79
[2019-01-04] MEDS: LORazepam 2 MG TABLET PO PRN (17:30)
[2019-01-04] MEDS: TraZODone HCL 50 MG TABLET PO SCH (20:15)
[2019-01-04] MEDS: ZOLPIDEM TARTRATE 10 MG TABLET PO PRN (20:15)
[2019-01-04] MEDS ORDERED: DIVA-78 PO (22:48)
[2019-01-05 02:14] VITALS: BP 106/67
[2019-01-05] MEDS: ZIPRASIDONE HCL 80 MG CAPSULE PO SCH (06:41)
[2019-01-05] MEDS: FERROUS SULFATE 325 MG EC TABLET PO SCH (06:41)
[2019-01-05 08:14] VITALS: BP 140/88
[2019-01-05] MEDS: DIVALPROEX SODIUM 500 MG DR TABLET PO SCH (08:19)
== END 2019-01-05 13:57 | disposition home or self-care (01) | DRG 750 ==
LOC: EMS 22:26 → B2S 12-20 00:35 → B3A 12-23 18:45
PROVIDERS: ADMIT Psychiatry & Neurology Psychiatry; ATTEND Psychiatry & Neurology Psychiatry
DX: F25.9 Schizoaffective disorder, unspecified (principal); R45.851 Suicidal ideations; F39 Unspecified mood [affective] disorder; F32.9 Major depressive disorder, single episode, unspecified; F41.9 Anxiety disorder, unspecified; E03.9 Hypothyroidism, unspecified; F10.10 Alcohol abuse, uncomplicated; F84.0 Autistic disorder; I10 Essential (primary) hypertension; Z91.5 Personal history of self-harm
CPT/HCPCS: 83036; 84436; 84439; 84443; G0480; J1200; J1630; J2060

== ENCOUNTER 2019-02-13 05:01 | Inpatient (IN) | payer MEDICAID ==
[~2019-02-13] VITALS: Ht 167.6 cm; Wt 103.0 kg
[~2019-02-13 05:01] MED LIST changes: -HALO5TAB2 PO
[2019-02-13 05:41] LABS: GLUCOSE,POINT OF CARE 104 MG/DL (70-110)
[2019-02-13 05:59] LABS: BASOPHILS % (AUTO) 0.5 % (0.0-2.0); EOSINOPHILS % (AUTO) 0.6 % (1.0-6.0); HEMATOCRIT 33.8 % (36-46); HEMOGLOBIN 11.3 g/dL (12.0-16.0); LYMPHOCYTES # (AUTO) 1.9 K/uL (1.0-4.8); LYMPHOCYTES % (AUTO) 27.8 % (22.0-44.0); MEAN CORPUSCULAR HEMOGLOBIN 31.1 pg (26.0-34.0); MEAN CORPUSCULAR HGB CONC 33.6 G/dL (31.0-37.0); MEAN CORPUSCULAR VOLUME 93 fL (80-100); MONOCYTES # (AUTO) 0.7 K/uL (0.1-1.0); MONOCYTES % (AUTO) 10.9 % (2.0-9.0); NEUTROPHILS % (AUTO) 60.2 % (40.0-70.0); PLATELET COUNT (AUTO) 231 K/uL (150-450); RED BLOOD CELL COUNT(AUTO) 3.65 MIL/uL (4.00-5.20)
[2019-02-13 06:05] LABS: ANION GAP 6 mmol/L (8-16); CALCIUM, TOTAL 8.7 mg/dL (8.8-10.5); CARBON DIOXIDE 29 mmol/L (22-29); CHLORIDE 105 mmol/L (98-107); CREATININE 0.63 mg/dL (0.60-1.30); GLOMERULAR FILTR. RATE CALC > 60 mL/min (>60); GLUCOSE,RANDOM 103 mg/dL (70-110); POTASSIUM 3.7 mmol/L (3.5-5.1); SODIUM SERUM 140 mmol/L (136-145); UREA NITROGEN, BLOOD 7 mg/dL (7-18)
[2019-02-13] MEDS ORDERED: PERTUSS(ACELL),DIPH,TET VAC/PF 0.5 ML VIAL IM ONE (06:15)
[2019-02-13 06:16] LABS: ALANINE AMINOTRANSFERASE 26 U/L (12-78); ALBUMIN 3.2 g/dL (3.4-5.0); ALKALINE PHOSPHATASE 55 U/L (46-116); ASPARTATE AMINOTRANSFERASE 20 U/L (15-37); BILIRUBIN,TOTAL 0.2 mg/dL (0.1-1.0); HCG,QUANTITATIVE < 1 mIU/mL (0-6); TOTAL PROTEIN, SERUM 7.3 g/dL (6.4-8.2); VALPROIC ACID 72 mcg/mL (50-100)
[2019-02-13 06:20] LABS: AMPHET/METH SCREEN,URINE NEGATIVE (NEGATIVE); BARBITURATE SCREEN, URINE NEGATIVE (NEGATIVE); BENZODIAZEPINES SCREEN,URINE NEGATIVE (NEGATIVE); CANNABINOID SCREEN,URINE NEGATIVE (NEGATIVE); COCAINE SCREEN,URINE NEGATIVE (NEGATIVE); METHADONE SCREEN, URINE NEGATIVE (NEGATIVE); OPIATE SCREEN,URINE NEGATIVE (NEGATIVE)
[2019-02-13 06:25] LABS: PHENCYCLIDINE SCREEN,URINE NEGATIVE (NEGATIVE)
[2019-02-13] MEDS: HALOPERIDOL 5 MG TABLET PO PRN ×2 (12:08→12:09)
[2019-02-13] MEDS: LORazepam 2 MG TABLET PO PRN ×2 (12:08→12:09)
[2019-02-14] MEDS: ZOLPIDEM TARTRATE 10 MG TABLET PO PRN (00:20)
[2019-02-14] MEDS ORDERED: INFLUENZA VIRUS VACCINE QVS 2019-20 (3YR+)/PF 60 MCG/0.5 ML SYRINGE IM ONE (02:15)
[2019-02-14 02:17] VITALS: BP 120/77
[2019-02-14 07:36] LABS: CHOL/HDL RATIO 2.5 (3.9-5.7)
[2019-02-14 08:09] VITALS: BP 109/66
[2019-02-14] MEDS: DIVALPROEX SODIUM 500 MG DR TABLET PO SCH ×2 (13:23→17:26)
[2019-02-14] MEDS ORDERED: DiphenhydrAMINE HCL 50 MG/ML VIAL ONE (13:57)
[2019-02-14] MEDS ORDERED: LORazepam 2 MG/ML VIAL ONE (13:57)
[2019-02-14] MEDS ORDERED: HALOPERIDOL LACTATE 5 MG/ML VIAL ONE (13:57)
[2019-02-14] MEDS ORDERED: DiphenhydrAMINE HCL 50 MG/ML VIAL IM ONE (14:00)
[2019-02-14] MEDS ORDERED: LORazepam 2 MG/ML VIAL IM ONE (14:00)
[2019-02-14] MEDS ORDERED: HALOPERIDOL LACTATE 5 MG/ML VIAL IM ONE (14:00)
[2019-02-14] MEDS ORDERED: HALO5TAB2 PO (14:34)
[2019-02-14] MEDS ORDERED: DIPH50 PO (14:34)
[2019-02-14] MEDS ORDERED: ARIP10TA8 PO (14:34)
[2019-02-14] MEDS: ZIPRASIDONE HCL 80 MG CAPSULE PO SCH ×2 (14:43→18:39)
[2019-02-14 18:05] VITALS: BP 145/85
[2019-02-14] MEDS: TraZODone HCL 50 MG TABLET PO SCH (21:00)
[2019-02-15] MEDS: ZIPRASIDONE HCL 80 MG CAPSULE PO SCH ×2 (06:40→17:07)
[2019-02-15] MEDS: DIVALPROEX SODIUM 500 MG DR TABLET PO SCH ×2 (08:11→17:07)
[2019-02-15] MEDS: HALOPERIDOL 5 MG TABLET PO PRN ×2 (08:12→17:07)
[2019-02-15] MEDS: LORazepam 2 MG TABLET PO PRN ×2 (08:12→17:07)
[2019-02-15 08:21] VITALS: BP 124/68
[2019-02-15] MEDS: BACITRACIN 28.4 GM OINTMENT TP SCH ×2 (09:00→17:08)
[2019-02-15 16:00] VITALS: BP 126/61
[2019-02-15] MEDS: ZOLPIDEM TARTRATE 10 MG TABLET PO PRN (21:00)
[2019-02-15] MEDS: TraZODone HCL 50 MG TABLET PO SCH (21:00)
[2019-02-16] MEDS: ZIPRASIDONE HCL 80 MG CAPSULE PO SCH ×2 (07:08→17:05)
[2019-02-16] MEDS: DIVALPROEX SODIUM 500 MG DR TABLET PO SCH ×2 (08:08→17:05)
[2019-02-16] MEDS: BACITRACIN 28.4 GM OINTMENT TP SCH ×2 (08:09→17:04)
[2019-02-16] MEDS: LORazepam 2 MG TABLET PO PRN ×2 (08:10→17:05)
[2019-02-16] MEDS: HALOPERIDOL 5 MG TABLET PO PRN (08:50)
[2019-02-16 12:54] VITALS: BP 122/69
[2019-02-16] MEDS: TraZODone HCL 50 MG TABLET PO SCH (20:05)
[2019-02-17 03:37] VITALS: BP 118/83
[2019-02-17] MEDS: LORazepam 2 MG TABLET PO PRN ×3 (03:45→16:53)
[2019-02-17] MEDS: ZIPRASIDONE HCL 80 MG CAPSULE PO SCH ×2 (06:55→16:53)
[2019-02-17] MEDS: DIVALPROEX SODIUM 500 MG DR TABLET PO SCH ×2 (08:14→16:53)
[2019-02-17] MEDS: BACITRACIN 28.4 GM OINTMENT TP SCH ×2 (08:34→16:53)
[2019-02-17 08:53] VITALS: BP 112/66
[2019-02-17 16:02] VITALS: BP 112/66
[2019-02-17] MEDS: TraZODone HCL 50 MG TABLET PO SCH (20:40)
[2019-02-18] MEDS: ZIPRASIDONE HCL 80 MG CAPSULE PO SCH ×2 (07:10→16:16)
[2019-02-18 08:00] VITALS: BP 136/72
[2019-02-18] MEDS: LORazepam 2 MG TABLET PO PRN ×2 (08:18→16:16)
[2019-02-18] MEDS: DIVALPROEX SODIUM 500 MG DR TABLET PO SCH ×2 (08:18→16:16)
[2019-02-18] MEDS: BACITRACIN 28.4 GM OINTMENT TP SCH ×2 (08:18→16:15)
[2019-02-18] MEDS: TraZODone HCL 50 MG TABLET PO SCH (20:09)
[2019-02-18 20:25] VITALS: BP 118/72
[2019-02-18] MEDS: ZOLPIDEM TARTRATE 10 MG TABLET PO PRN (23:58)
[2019-02-19] MEDS: ZIPRASIDONE HCL 80 MG CAPSULE PO SCH ×2 (06:58→16:56)
[2019-02-19 09:20] VITALS: BP 110/68
[2019-02-19] MEDS: BACITRACIN 28.4 GM OINTMENT TP SCH ×2 (09:38→17:52)
[2019-02-19] MEDS: DIVALPROEX SODIUM 500 MG DR TABLET PO SCH ×2 (09:38→16:56)
[2019-02-19] MEDS: LORazepam 2 MG TABLET PO PRN ×2 (09:38→15:18)
[2019-02-19] MEDS ORDERED: LOPERAMIDE HCL 2 MG CAPSULE PO PRN (10:45)
[2019-02-19] MEDS ORDERED: ACETAMINOPHEN 325 MG TABLET PO PRN (10:45)
[2019-02-19] MEDS ORDERED: MAGNESIUM HYDROXIDE SUSPENSION 30 ML UDCUP PO PRN (10:45)
[2019-02-19] MEDS ORDERED: ONDANSETRON HCL 4 MG TABLET PO PRN (10:45)
[2019-02-19] MEDS ORDERED: PETROLATUM,WHITE 28 GM JELLY TP PRN (10:45)
[2019-02-19] MEDS ORDERED: DOCUSATE SODIUM 100 MG CAPSULE PO PRN (10:45)
[2019-02-19] MEDS ORDERED: ALBUTEROL SULFATE HFA 90 MCG/PUFF 8 GM INHALER IH PRN (10:45)
[2019-02-19] MEDS ORDERED: CloNIDine HCL 0.1 MG TABLET PO PRN (10:45)
[2019-02-19] MEDS ORDERED: MAG HYDROX/AL HYDROX/SIMETH ES 30 ML SUSPENSION UDCUP PO PRN (10:45)
[2019-02-19] MEDS ORDERED: NICOTINE 14 MG/24 HOUR PATCH TD PRN (10:45)
[2019-02-19] MEDS ORDERED: GuaiFENesin/D-METHORPHAN [SUGAR-FREE] 200-20MG/10 ML SYRUP UDCUP PO PRN (10:45)
[2019-02-19] MEDS ORDERED: IBUPROFEN 400 MG TABLET PO PRN (10:45)
[2019-02-19] MEDS: HALOPERIDOL 5 MG TABLET PO PRN ×3 (12:47→21:03)
[2019-02-19 16:24] VITALS: BP 109/66
[2019-02-19] MEDS: ZOLPIDEM TARTRATE 10 MG TABLET PO PRN (21:03)
[2019-02-19] MEDS: TraZODone HCL 50 MG TABLET PO SCH (21:03)
[2019-02-20] MEDS: LORazepam 2 MG TABLET PO PRN ×3 (04:13→17:30)
[2019-02-20 04:25] VITALS: BP 104/63
[2019-02-20] MEDS: ZIPRASIDONE HCL 80 MG CAPSULE PO SCH ×2 (07:10→16:12)
[2019-02-20] MEDS: HALOPERIDOL 5 MG TABLET PO PRN ×2 (07:48→18:25)
[2019-02-20] MEDS: BACITRACIN 28.4 GM OINTMENT TP SCH ×2 (07:48→16:12)
[2019-02-20] MEDS: DIVALPROEX SODIUM 500 MG DR TABLET PO SCH ×2 (07:48→16:12)
[2019-02-20 08:00] VITALS: BP 114/68
[2019-02-20 17:57] VITALS: BP 116/75
[2019-02-20] MEDS: ZOLPIDEM TARTRATE 10 MG TABLET PO PRN (20:50)
[2019-02-20] MEDS: TraZODone HCL 50 MG TABLET PO SCH (21:52)
[2019-02-21] MEDS: ZIPRASIDONE HCL 80 MG CAPSULE PO SCH ×2 (06:45→17:27)
[2019-02-21 08:11] VITALS: BP 136/86
[2019-02-21] MEDS: LORazepam 2 MG TABLET PO PRN ×3 (09:05→19:41)
[2019-02-21] MEDS: BACITRACIN 28.4 GM OINTMENT TP SCH ×2 (09:05→16:24)
[2019-02-21] MEDS: DIVALPROEX SODIUM 500 MG DR TABLET PO SCH ×2 (09:05→16:24)
[2019-02-21] MEDS: HALOPERIDOL 5 MG TABLET PO PRN ×2 (15:26→22:41)
[2019-02-21 16:03] VITALS: BP 139/78
[2019-02-21] MEDS: TraZODone HCL 50 MG TABLET PO SCH (20:07)
[2019-02-21] MEDS: ZOLPIDEM TARTRATE 10 MG TABLET PO PRN (22:41)
[2019-02-22] MEDS: LORazepam 2 MG TABLET PO PRN ×2 (02:32→08:02)
[2019-02-22 02:38] VITALS: BP 129/81
[2019-02-22] MEDS: ZIPRASIDONE HCL 80 MG CAPSULE PO SCH ×2 (07:03→16:20)
[2019-02-22] MEDS: DIVALPROEX SODIUM 500 MG DR TABLET PO SCH ×2 (08:02→16:20)
[2019-02-22] MEDS: BACITRACIN 28.4 GM OINTMENT TP SCH ×2 (08:04→16:20)
[2019-02-22 14:00] VITALS: BP 125/76
[2019-02-22 16:47] VITALS: BP 121/60
[2019-02-22] MEDS: ZOLPIDEM TARTRATE 10 MG TABLET PO PRN (20:26)
[2019-02-22] MEDS: TraZODone HCL 50 MG TABLET PO SCH (20:26)
[2019-02-23 04:10] VITALS: BP 140/102
[2019-02-23] MEDS: ZIPRASIDONE HCL 80 MG CAPSULE PO SCH ×2 (07:04→16:24)
[2019-02-23] MEDS: HALOPERIDOL 5 MG TABLET PO PRN ×2 (07:55→12:36)
[2019-02-23] MEDS: DIVALPROEX SODIUM 500 MG DR TABLET PO SCH ×2 (07:55→16:24)
[2019-02-23] MEDS: LORazepam 2 MG TABLET PO PRN ×3 (07:55→16:46)
[2019-02-23 08:00] VITALS: BP 109/84
[2019-02-23] MEDS: BACITRACIN 28.4 GM OINTMENT TP SCH ×2 (09:31→16:24)
[2019-02-23] MEDS ORDERED: QUEtiapine FUMARATE 100 MG TABLET ONE (13:38)
[2019-02-23] MEDS ORDERED: QUEtiapine FUMARATE 100 MG TABLET PO ONE (13:45)
[2019-02-23 16:32] VITALS: BP 123/72
[2019-02-23] MEDS: TraZODone HCL 50 MG TABLET PO SCH (20:25)
[2019-02-24] MEDS: ZIPRASIDONE HCL 80 MG CAPSULE PO SCH ×2 (06:55→16:20)
[2019-02-24] MEDS: DIVALPROEX SODIUM 500 MG DR TABLET PO SCH ×2 (07:41→16:20)
[2019-02-24] MEDS: BACITRACIN 28.4 GM OINTMENT TP SCH ×2 (07:41→16:20)
[2019-02-24] MEDS: LORazepam 2 MG TABLET PO PRN ×2 (07:41→13:04)
[2019-02-24 08:00] VITALS: BP 125/58
[2019-02-24] MEDS: HALOPERIDOL 5 MG TABLET PO PRN (13:04)
[2019-02-24 16:20] VITALS: BP 104/79
[2019-02-24] MEDS: TraZODone HCL 50 MG TABLET PO SCH (20:22)
[2019-02-25] MEDS: LORazepam 2 MG TABLET PO PRN ×2 (05:08→15:46)
[2019-02-25] MEDS: HALOPERIDOL 5 MG TABLET PO PRN (05:08)
[2019-02-25] MEDS ORDERED: HALOPERIDOL LACTATE 5 MG/ML VIAL IM ONE (05:15)
[2019-02-25] MEDS ORDERED: DiphenhydrAMINE HCL 50 MG/ML VIAL IM ONE (05:15)
[2019-02-25] MEDS ORDERED: LORazepam 2 MG/ML VIAL IM ONE (05:15)
[2019-02-25] MEDS: ZIPRASIDONE HCL 80 MG CAPSULE PO SCH ×2 (06:57→17:00)
[2019-02-25] MEDS: DIVALPROEX SODIUM 500 MG DR TABLET PO SCH ×2 (08:24→17:00)
[2019-02-25 08:50] VITALS: BP 118/74
[2019-02-25 16:11] VITALS: BP 109/76
[2019-02-25] MEDS: TraZODone HCL 50 MG TABLET PO SCH (22:21)
[2019-02-26 04:04] VITALS: BP 133/77
[2019-02-26] MEDS: LORazepam 2 MG TABLET PO PRN ×3 (04:20→23:51)
[2019-02-26] MEDS: HALOPERIDOL 5 MG TABLET PO PRN ×2 (04:53→23:51)
[2019-02-26] MEDS: ZIPRASIDONE HCL 80 MG CAPSULE PO SCH ×2 (07:04→16:32)
[2019-02-26] MEDS: DIVALPROEX SODIUM 500 MG DR TABLET PO SCH ×2 (08:49→16:32)
[2019-02-26 12:47] VITALS: BP 108/68
[2019-02-26] MEDS: TraZODone HCL 50 MG TABLET PO SCH (20:09)
[2019-02-26] MEDS: ZOLPIDEM TARTRATE 10 MG TABLET PO PRN (23:51)
[2019-02-27 06:10] VITALS: BP 116/70
[2019-02-27] MEDS: ZIPRASIDONE HCL 80 MG CAPSULE PO SCH ×2 (06:58→16:06)
[2019-02-27] MEDS: HALOPERIDOL 5 MG TABLET PO PRN ×2 (08:06→16:07)
[2019-02-27] MEDS: DIVALPROEX SODIUM 500 MG DR TABLET PO SCH ×2 (08:06→16:06)
[2019-02-27] MEDS: LORazepam 2 MG TABLET PO PRN ×2 (08:06→16:07)
[2019-02-27 16:30] VITALS: BP 109/81
[2019-02-27] MEDS: TraZODone HCL 50 MG TABLET PO SCH (20:35)
[2019-02-27] MEDS: ZOLPIDEM TARTRATE 10 MG TABLET PO PRN (20:35)
[2019-02-28] MEDS: ZIPRASIDONE HCL 80 MG CAPSULE PO SCH ×3 (06:19→16:14)
[2019-02-28] MEDS: DIVALPROEX SODIUM 500 MG DR TABLET PO SCH ×2 (08:10→16:14)
[2019-02-28 09:35] VITALS: BP 124/74
[2019-02-28] MEDS: HALOPERIDOL 5 MG TABLET PO PRN (16:14)
[2019-02-28] MEDS: LORazepam 2 MG TABLET PO PRN (16:14)
[2019-02-28 16:17] VITALS: BP 135/77
[2019-02-28] MEDS: ZOLPIDEM TARTRATE 10 MG TABLET PO PRN (20:47)
[2019-02-28] MEDS: TraZODone HCL 50 MG TABLET PO SCH (20:47)
[2019-03-01] MEDS: LORazepam 2 MG TABLET PO PRN ×3 (02:05→16:09)
[2019-03-01] MEDS: HALOPERIDOL 5 MG TABLET PO PRN ×3 (02:05→16:09)
[2019-03-01] MEDS: ZIPRASIDONE HCL 80 MG CAPSULE PO SCH (06:59)
[2019-03-01 08:12] VITALS: BP 145/85
[2019-03-01] MEDS: DIVALPROEX SODIUM 500 MG DR TABLET PO SCH ×2 (09:08→16:09)
[2019-03-01 14:03] VITALS: BP 138/82
[2019-03-01] MEDS: ZIPRASIDONE HCL 60 MG CAPSULE PO SCH (16:44)
[2019-03-01 16:52] VITALS: BP 111/60
[2019-03-01] MEDS: ZOLPIDEM TARTRATE 10 MG TABLET PO PRN (20:01)
[2019-03-01] MEDS: TraZODone HCL 50 MG TABLET PO SCH (20:10)
[2019-03-02] MEDS: ZIPRASIDONE HCL 60 MG CAPSULE PO SCH ×2 (06:53→16:21)
[2019-03-02] MEDS: HALOPERIDOL 5 MG TABLET PO PRN ×2 (07:38→11:49)
[2019-03-02] MEDS: LORazepam 2 MG TABLET PO PRN ×3 (07:38→16:44)
[2019-03-02] MEDS: DIVALPROEX SODIUM 500 MG DR TABLET PO SCH ×2 (07:38→16:21)
[2019-03-02 08:32] VITALS: BP 100/54
[2019-03-02 16:01] VITALS: BP 91/52
[2019-03-02] MEDS: TraZODone HCL 50 MG TABLET PO SCH (20:15)
[2019-03-03] MEDS: ZIPRASIDONE HCL 60 MG CAPSULE PO SCH ×2 (06:42→16:52)
[2019-03-03 08:00] VITALS: BP 140/62
[2019-03-03] MEDS: LORazepam 2 MG TABLET PO PRN ×2 (08:26→12:46)
[2019-03-03] MEDS: HALOPERIDOL 5 MG TABLET PO PRN ×2 (08:26→12:46)
[2019-03-03] MEDS: DIVALPROEX SODIUM 500 MG DR TABLET PO SCH ×2 (08:26→16:40)
[2019-03-03] MEDS ORDERED: ZIPR60CA2 PO (14:56)
[2019-03-03 16:43] VITALS: BP 109/66
[2019-03-03] MEDS: TraZODone HCL 50 MG TABLET PO SCH (20:20)
[2019-03-04] MEDS: LORazepam 2 MG TABLET PO PRN ×2 (03:12→09:04)
[2019-03-04] MEDS: HALOPERIDOL 5 MG TABLET PO PRN ×2 (03:12→09:04)
[2019-03-04] MEDS: ZIPRASIDONE HCL 60 MG CAPSULE PO SCH (06:39)
[2019-03-04] MEDS: DIVALPROEX SODIUM 500 MG DR TABLET PO SCH (09:04)
== END 2019-03-04 12:50 | disposition home or self-care (01) | DRG 753 ==
LOC: EMS 05:03 → 3EI 02-14 01:00 → 3EC 02-14 14:34
PROVIDERS: ADMIT Psychiatry & Neurology Child & Adolescent Psychiatry; ATTEND Psychiatry & Neurology Child & Adolescent Psychiatry
DX: F31.4 Bipolar disorder, current episode depressed, severe, without psychotic features (principal); E83.51 Hypocalcemia; E11.9 Type 2 diabetes mellitus without complications; D64.9 Anemia, unspecified; F84.5 Asperger's syndrome; F94.0 Selective mutism; I10 Essential (primary) hypertension; F31.63 Bipolar disorder, current episode mixed, severe, without psychotic features; Z88.8 Allergy status to other drugs, medicaments and biological substances; X58.XXXA Exposure to other specified factors, initial encounter; Y93.89 Activity, other specified; Y92.89 Other specified places as the place of occurrence of the external cause; Y99.8 Other external cause status; S41.111A Laceration without foreign body of right upper arm, initial encounter; S41.112A Laceration without foreign body of left upper arm, initial encounter; S61.519A Laceration without foreign body of unspecified wrist, initial encounter; X78.9XXA Intentional self-harm by unspecified sharp object, initial encounter; Z59.0 Homelessness
CPT/HCPCS: 90686; 90715; 93005; G0480; J1200; J1630; J2060

== ENCOUNTER 2023-03-25 17:11 | Inpatient (IN) | payer MEDICAID, OTHER ==
[~2023-03-25] VITALS: Ht 162.6 cm; Wt 113.0 kg
[~2023-03-25 17:11] MED LIST changes: +DIVA-112 PO; -DIVA-78 PO; +ZIPR60CA29 PO; -ZIPR80CA2 PO
[2023-03-25 17:33] LABS: BASOPHILS % (AUTO) 0.6 % (0.0-2.0); EOSINOPHILS % (AUTO) 1.5 % (1.0-6.0); HEMATOCRIT 34.4 % (36-46); HEMOGLOBIN 11.6 g/dL (12.0-16.0); LYMPHOCYTES # (AUTO) 2.5 K/uL (1.0-4.8); MEAN CORPUSCULAR HEMOGLOBIN 30.7 pg (26.0-34.0); MEAN CORPUSCULAR HGB CONC 33.8 G/dL (31.0-37.0); MEAN CORPUSCULAR VOLUME 91 fL (80-100); MONOCYTES # (AUTO) 0.6 K/uL (0.1-1.0); MONOCYTES % (AUTO) 8.6 % (2.0-9.0); NEUTROPHILS % (AUTO) 55.3 % (40.0-70.0); PLATELET COUNT (AUTO) 324 K/uL (150-450); RED BLOOD CELL COUNT(AUTO) 3.79 MIL/uL (4.00-5.20); RED CELL DISTRIBUTION WIDTH 14.9 % (11.5-14.5); WHITE BLOOD COUNT (AUTO) 7.2 K/uL (4.5-11.0)
[2023-03-25 17:40] LABS: ANION GAP 5 mmol/L (8-16); CALCIUM, TOTAL 8.9 mg/dL (8.8-10.5); CARBON DIOXIDE 28 mmol/L (22-29); CHLORIDE 102 mmol/L (98-107); CREATININE 0.61 mg/dL (0.60-1.30); GLOMERULAR FILTR. RATE CALC > 60 mL/min (>60); GLUCOSE,RANDOM 169 mg/dL (70-110); SODIUM SERUM 135 mmol/L (136-145); UREA NITROGEN, BLOOD 9 mg/dL (7-18)
[2023-03-25 17:45] LABS: ALCOHOL, BLOOD (SERUM) < 3 mg/dL (0-10)
[2023-03-25 17:46] LABS: ALANINE AMINOTRANSFERASE 40 U/L (12-78); ALBUMIN 3.2 g/dL (3.4-5.0); ALKALINE PHOSPHATASE 67 U/L (46-116); ASPARTATE AMINOTRANSFERASE 27 U/L (15-37); BILIRUBIN,TOTAL 0.1 mg/dL (0.1-1.0); TOTAL PROTEIN, SERUM 7.5 g/dL (6.4-8.2)
[2023-03-25 17:48] LABS: PH,URINE DRUG SCREEN 6.5 (5.0-8.0)
[2023-03-25 17:55] LABS: ALCOHOL, URINE DRUG SCREEN NEGATIVE (NEGATIVE); AMPHET/METH SCREEN,URINE NEGATIVE (NEGATIVE); BARBITURATE SCREEN, URINE NEGATIVE (NEGATIVE); BENZODIAZEPINES SCREEN,URINE NEGATIVE (NEGATIVE); CANNABINOID SCREEN,URINE NEGATIVE (NEGATIVE); COCAINE SCREEN,URINE NEGATIVE (NEGATIVE); METHADONE SCREEN, URINE NEGATIVE (NEGATIVE); OPIATE SCREEN,URINE NEGATIVE (NEGATIVE); PHENCYCLIDINE SCREEN,URINE NEGATIVE (NEGATIVE)
[2023-03-25] MEDS ORDERED: LIDOCAINE 1% 10 ML VIAL SQ ONE (18:45)
[2023-03-25] MEDS ORDERED: PERTUSS(ACELL),DIPH,TET VAC/PF 0.5 ML SYRINGE IM. ONE (18:45)
[2023-03-25 18:52] LABS: COVID AG,FIA SOURCE NASAL SWAB
[2023-03-25 19:12] LABS: SARS-COV2 (COVID) ANTIGEN,FIA Negative (Negative)
[2023-03-25] MEDS: LORazepam 2 MG TABLET PO PRN (20:54)
[2023-03-25] MEDS: HALOPERIDOL 5 MG TABLET PO PRN (20:54)
[2023-03-25] MEDS ORDERED: PROP10TA10 PO (22:18)
[2023-03-25] MEDS ORDERED: DIVA500T52 PO (22:18)
[2023-03-25] MEDS ORDERED: HALO10TA21 PO ×2 (22:18)
[2023-03-25] MEDS ORDERED: QUET300T19 PO (22:18)
[2023-03-25] MEDS ORDERED: METF-1211 PO (22:18)
[2023-03-26 00:32] VITALS: BP 118/73; PULSE 104; RESP 18; TEMP 98.2
[2023-03-26] MEDS ORDERED: PNEUMOCOCCAL VACCINE POLYVALENT 0.5 ML SYRINGE [PPSV23] IM. ONE (02:45)
[2023-03-26 08:05] VITALS: BP 114/79; PULSE 100; RESP 17; TEMP 98.4; O2SAT 96
[2023-03-26] MEDS: HALOPERIDOL 5 MG TABLET PO PRN (08:36)
[2023-03-26] MEDS: BACITRACIN 28 GM OINTMENT TP SCH (08:36)
[2023-03-26] MEDS: LORazepam 2 MG TABLET PO PRN ×2 (08:36→18:56)
[2023-03-26 08:37] LABS: FREE T4 (FREE THYROXINE) 1.04 ng/dL (0.76-1.46); THYROID STIMULATING HORMONE 9.88 uIU/mL (0.36-3.74)
[2023-03-26] MEDS ORDERED: NICOTINE 14 MG/24 HOUR PATCH TD PRN (11:00)
[2023-03-26] MEDS: PROPRANOLOL HCL 10 MG TABLET PO SCH ×2 (11:00→16:19)
[2023-03-26] MEDS ORDERED: ACETAMINOPHEN 325 MG TABLET PO PRN (11:00)
[2023-03-26] MEDS ORDERED: GuaiFENesin/D-METHORPHAN [SUGAR-FREE] 200-20MG/10 ML SYRUP UDCUP PO PRN (11:00)
[2023-03-26] MEDS ORDERED: PETROLATUM,WHITE 28 GM JELLY TP PRN (11:00)
[2023-03-26] MEDS ORDERED: ALBUTEROL SULFATE HFA 90 MCG/PUFF 8 GM INHALER IH PRN (11:00)
[2023-03-26] MEDS ORDERED: LOPERAMIDE HCL 2 MG CAPSULE PO PRN (11:00)
[2023-03-26] MEDS ORDERED: DOCUSATE SODIUM 100 MG CAPSULE PO PRN (11:00)
[2023-03-26] MEDS ORDERED: IBUPROFEN 400 MG TABLET PO PRN (11:00)
[2023-03-26] MEDS ORDERED: CloNIDine HCL 0.1 MG TABLET PO PRN (11:00)
[2023-03-26] MEDS ORDERED: ONDANSETRON HCL 4 MG TABLET PO PRN (11:00)
[2023-03-26] MEDS ORDERED: MAG HYDROX/ALUMINUM HYD/SIMETH ES 30 ML SUSPENSION UDCUP PO PRN (11:00)
[2023-03-26] MEDS ORDERED: MAGNESIUM HYDROXIDE SUSPENSION 30 ML UDCUP PO PRN (11:00)
[2023-03-26] MEDS: MetFORMIN HCL 500 MG TABLET PO SCH (16:19)
[2023-03-26] MEDS ORDERED: PROPRANOLOL HCL 10 MG TABLET PO SCH (17:00)
[2023-03-26] MEDS: QUEtiapine FUMARATE 300 MG TABLET PO SCH (20:02)
[2023-03-26] MEDS: HALOPERIDOL 10 MG TABLET PO SCH (20:02)
[2023-03-26] MEDS: ZOLPIDEM TARTRATE 10 MG TABLET PO PRN (20:51)
[2023-03-26 21:57] VITALS: BP 130/80; PULSE 81; RESP 18; TEMP 97.9; O2SAT 99
[2023-03-27] MEDS: MetFORMIN HCL 500 MG TABLET PO SCH ×2 (06:20→16:14)
[2023-03-27 08:25] VITALS: BP 123/89; PULSE 89; RESP 16; TEMP 98.6; O2SAT 97
[2023-03-27] MEDS: LORazepam 2 MG TABLET PO PRN (08:25)
[2023-03-27] MEDS: PROPRANOLOL HCL 10 MG TABLET PO SCH ×2 (08:25→16:13)
[2023-03-27] MEDS: HALOPERIDOL 5 MG TABLET PO PRN (08:25)
[2023-03-27] MEDS: BACITRACIN 28 GM OINTMENT TP SCH (09:04)
[2023-03-27] MEDS: LEVOTHYROXINE SODIUM 75 MCG TABLET PO SCH (11:00)
[2023-03-27] MEDS: HALOPERIDOL 10 MG TABLET PO SCH (20:06)
[2023-03-27] MEDS: QUEtiapine FUMARATE 300 MG TABLET PO SCH (20:07)
[2023-03-27] MEDS: ZOLPIDEM TARTRATE 10 MG TABLET PO PRN (20:22)
[2023-03-28 00:55] VITALS: BP 129/89; PULSE 87; RESP 18; TEMP 97.7; O2SAT 99
[2023-03-28] MEDS: LEVOTHYROXINE SODIUM 75 MCG TABLET PO SCH (06:22)
[2023-03-28] MEDS: MetFORMIN HCL 500 MG TABLET PO SCH ×2 (06:31→16:37)
[2023-03-28 08:04] LABS: APPEARANCE,URINE CLEAR (CLEAR); BILIRUBIN,URINE NEGATIVE (NEGATIVE); COLOR,URINE COLORLESS (YELLOW); GLUCOSE, URINE (UA) NEGATIVE (NEGATIVE); KETONES,URINE NEGATIVE (NEGATIVE); LEUKOCYTE ESTERASE ,URINE NEGATIVE (NEGATIVE); NITRATE,URINE NEGATIVE (NEGATIVE); OCCULT BLOOD,URINE NEGATIVE (NEGATIVE); PH,URINE 5.5 (5.0-8.0); PH,URINE DRUG SCREEN 5.5 (5.0-8.0); PROTEIN,URINE NEGATIVE (NEGATIVE); SPECIFIC GRAVITIY, URINE 1.008 (1.003-1.030); UROBILINOGEN,URINE <=1.0 mg/dL (<=1.0)
[2023-03-28] MEDS: PROPRANOLOL HCL 10 MG TABLET PO SCH ×2 (08:10→16:37)
[2023-03-28 08:11] VITALS: BP 116/60; PULSE 100; RESP 17; TEMP 97.7; O2SAT 97
[2023-03-28] MEDS: BACITRACIN 28 GM OINTMENT TP SCH (08:11)
[2023-03-28 08:13] LABS: ALCOHOL, URINE DRUG SCREEN NEGATIVE (NEGATIVE); AMPHET/METH SCREEN,URINE NEGATIVE (NEGATIVE); BARBITURATE SCREEN, URINE NEGATIVE (NEGATIVE); BENZODIAZEPINES SCREEN,URINE NEGATIVE (NEGATIVE); CANNABINOID SCREEN,URINE NEGATIVE (NEGATIVE); COCAINE SCREEN,URINE NEGATIVE (NEGATIVE); METHADONE SCREEN, URINE NEGATIVE (NEGATIVE); OPIATE SCREEN,URINE NEGATIVE (NEGATIVE); PHENCYCLIDINE SCREEN,URINE NEGATIVE (NEGATIVE)
[2023-03-28] MEDS: HALOPERIDOL 5 MG TABLET PO PRN (09:54)
[2023-03-28] MEDS: LORazepam 2 MG TABLET PO PRN (09:54)
[2023-03-28] MEDS ORDERED: HALOPERIDOL LACTATE 5 MG/ML VIAL IM ONE (14:45)
[2023-03-28] MEDS ORDERED: DiphenhydrAMINE HCL 50 MG/ML VIAL IM ONE (14:45)
[2023-03-28] MEDS ORDERED: LORazepam 2 MG/ML VIAL IM ONE (14:45)
[2023-03-28 18:55] VITALS: BP 120/81; PULSE 82; RESP 17; TEMP 98; O2SAT 97
[2023-03-28] MEDS: QUEtiapine FUMARATE 300 MG TABLET PO SCH (20:02)
[2023-03-28] MEDS: HALOPERIDOL 10 MG TABLET PO SCH (20:02)
[2023-03-28] MEDS: ZOLPIDEM TARTRATE 10 MG TABLET PO PRN (20:02)
[2023-03-28 20:03] VITALS: BP 114/62; PULSE 100; RESP 18; TEMP 97.6; O2SAT 98
[2023-03-28] MEDS: DIVALPROEX SODIUM 500 MG DR TABLET PO SCH (20:06)
[2023-03-29] MEDS: MetFORMIN HCL 500 MG TABLET PO SCH ×2 (06:22→16:25)
[2023-03-29] MEDS: LEVOTHYROXINE SODIUM 75 MCG TABLET PO SCH (06:22)
[2023-03-29 08:16] VITALS: RESP 18
[2023-03-29] MEDS: BACITRACIN 28 GM OINTMENT TP SCH ×2 (09:00→11:06)
[2023-03-29] MEDS: PROPRANOLOL HCL 10 MG TABLET PO SCH ×3 (09:00→16:25)
[2023-03-29] MEDS: HALOPERIDOL 5 MG TABLET PO PRN ×2 (11:05→17:34)
[2023-03-29] MEDS: LORazepam 2 MG TABLET PO PRN ×2 (12:24→17:34)
[2023-03-29 16:23] VITALS: BP 144/83; PULSE 102; RESP 18
[2023-03-29] MEDS: ZOLPIDEM TARTRATE 10 MG TABLET PO PRN (20:03)
[2023-03-29] MEDS: HALOPERIDOL 10 MG TABLET PO SCH (20:03)
[2023-03-29] MEDS: QUEtiapine FUMARATE 300 MG TABLET PO SCH (20:03)
[2023-03-29 21:03] VITALS: BP 123/61; PULSE 96; RESP 18; TEMP 98.2; O2SAT 97
[2023-03-29] MEDS: DIVALPROEX SODIUM 500 MG DR TABLET PO SCH (21:07)
[2023-03-30] MEDS: MetFORMIN HCL 500 MG TABLET PO SCH ×2 (06:04→16:50)
[2023-03-30] MEDS: LEVOTHYROXINE SODIUM 75 MCG TABLET PO SCH (06:04)
[2023-03-30] MEDS: PROPRANOLOL HCL 10 MG TABLET PO SCH ×2 (08:07→16:50)
[2023-03-30] MEDS: BACITRACIN 28 GM OINTMENT TP SCH (08:07)
[2023-03-30 08:44] VITALS: RESP 18
[2023-03-30] MEDS: LORazepam 2 MG TABLET PO PRN (16:50)
[2023-03-30] MEDS: DIVALPROEX SODIUM 500 MG DR TABLET PO SCH (20:07)
[2023-03-30] MEDS: HALOPERIDOL 10 MG TABLET PO SCH (20:07)
[2023-03-30] MEDS: QUEtiapine FUMARATE 300 MG TABLET PO SCH (20:07)
[2023-03-30] MEDS: ZOLPIDEM TARTRATE 10 MG TABLET PO PRN (22:09)
[2023-03-30 23:12] VITALS: BP 128/66; PULSE 98; RESP 18; TEMP 97.6
[2023-03-31] MEDS: MetFORMIN HCL 500 MG TABLET PO SCH ×2 (06:08→16:02)
[2023-03-31] MEDS: LEVOTHYROXINE SODIUM 75 MCG TABLET PO SCH (06:09)
[2023-03-31 08:14] VITALS: BP 105/53; PULSE 74; RESP 18; TEMP 97.3
[2023-03-31] MEDS: BACITRACIN 28 GM OINTMENT TP SCH (08:18)
[2023-03-31] MEDS: PROPRANOLOL HCL 10 MG TABLET PO SCH ×2 (08:19→16:02)
[2023-03-31] MEDS: HALOPERIDOL 5 MG TABLET PO PRN (08:19)
[2023-03-31] MEDS: LORazepam 2 MG TABLET PO PRN (08:19)
[2023-03-31 09:11] LABS: HEMOGLOBIN A1C 6.4 % (3.8-5.6)
[2023-03-31 09:25] LABS: THYROID STIMULATING HORMONE 2.9 uIU/mL (0.36-3.74)
[2023-03-31] MEDS: MULTIVITAMINS WITH MINERALS, THERAPEUTIC TABLET PO SCH (10:15)
[2023-03-31] MEDS: HALOPERIDOL 10 MG TABLET PO SCH (20:08)
[2023-03-31] MEDS: DIVALPROEX SODIUM 500 MG DR TABLET PO SCH (20:08)
[2023-03-31] MEDS: QUEtiapine FUMARATE 300 MG TABLET PO SCH (20:08)
[2023-03-31 22:00] VITALS: BP 111/60; PULSE 98; RESP 18; TEMP 97.7; O2SAT 97
[2023-04-01] MEDS: ZOLPIDEM TARTRATE 10 MG TABLET PO PRN ×2 (00:03→21:08)
[2023-04-01] MEDS: LEVOTHYROXINE SODIUM 75 MCG TABLET PO SCH (06:37)
[2023-04-01] MEDS: MetFORMIN HCL 500 MG TABLET PO SCH ×2 (06:38→16:11)
[2023-04-01] MEDS: MULTIVITAMINS WITH MINERALS, THERAPEUTIC TABLET PO SCH (08:33)
[2023-04-01] MEDS: HALOPERIDOL 5 MG TABLET PO PRN ×2 (08:33→18:21)
[2023-04-01] MEDS: PROPRANOLOL HCL 10 MG TABLET PO SCH ×2 (08:33→16:11)
[2023-04-01] MEDS: LORazepam 2 MG TABLET PO PRN ×2 (08:33→18:21)
[2023-04-01] MEDS: BACITRACIN 28 GM OINTMENT TP SCH (08:35)
[2023-04-01 20:02] VITALS: BP 120/77; PULSE 98; RESP 18; TEMP 98
[2023-04-01] MEDS: QUEtiapine FUMARATE 300 MG TABLET PO SCH (20:12)
[2023-04-01] MEDS: HALOPERIDOL 10 MG TABLET PO SCH (20:12)
[2023-04-01] MEDS: DIVALPROEX SODIUM 500 MG DR TABLET PO SCH (20:12)
[2023-04-02] MEDS: LEVOTHYROXINE SODIUM 75 MCG TABLET PO SCH (06:22)
[2023-04-02] MEDS: MetFORMIN HCL 500 MG TABLET PO SCH ×2 (06:22→16:33)
[2023-04-02] MEDS: PROPRANOLOL HCL 10 MG TABLET PO SCH ×2 (08:15→16:33)
[2023-04-02] MEDS: MULTIVITAMINS WITH MINERALS, THERAPEUTIC TABLET PO SCH (08:15)
[2023-04-02] MEDS: BACITRACIN 28 GM OINTMENT TP SCH (08:16)
[2023-04-02] MEDS: LORazepam 2 MG TABLET PO PRN (16:33)
[2023-04-02] MEDS: HALOPERIDOL 5 MG TABLET PO PRN (16:33)
[2023-04-02] MEDS: QUEtiapine FUMARATE 300 MG TABLET PO SCH (20:41)
[2023-04-02] MEDS: HALOPERIDOL 10 MG TABLET PO SCH (20:41)
[2023-04-02] MEDS: DIVALPROEX SODIUM 500 MG DR TABLET PO SCH (20:41)
[2023-04-02 22:05] VITALS: RESP 18; TEMP 97.8
[2023-04-03] MEDS: LEVOTHYROXINE SODIUM 75 MCG TABLET PO SCH (06:25)
[2023-04-03] MEDS: MetFORMIN HCL 500 MG TABLET PO SCH ×2 (06:31→16:00)
[2023-04-03] MEDS: PROPRANOLOL HCL 10 MG TABLET PO SCH ×2 (08:07→16:00)
[2023-04-03] MEDS: HALOPERIDOL 5 MG TABLET PO PRN (08:07)
[2023-04-03] MEDS: LORazepam 2 MG TABLET PO PRN (08:07)
[2023-04-03] MEDS: MULTIVITAMINS WITH MINERALS, THERAPEUTIC TABLET PO SCH (08:07)
[2023-04-03] MEDS: BACITRACIN 28 GM OINTMENT TP SCH (08:07)
[2023-04-03 08:10] VITALS: BP 148/89; PULSE 100; RESP 18; TEMP 98; O2SAT 96
[2023-04-03] MEDS: DIVALPROEX SODIUM 500 MG DR TABLET PO SCH (20:07)
[2023-04-03] MEDS: HALOPERIDOL 10 MG TABLET PO SCH (20:07)
[2023-04-03] MEDS: QUEtiapine FUMARATE 300 MG TABLET PO SCH (20:07)
[2023-04-04 02:07] VITALS: RESP 18; TEMP 97.8
[2023-04-04] MEDS: MetFORMIN HCL 500 MG TABLET PO SCH ×2 (05:54→16:06)
[2023-04-04] MEDS: LEVOTHYROXINE SODIUM 75 MCG TABLET PO SCH (05:55)
[2023-04-04 08:30] VITALS: BP 129/80; PULSE 92; RESP 16; TEMP 98; O2SAT 98
[2023-04-04] MEDS: PROPRANOLOL HCL 10 MG TABLET PO SCH ×2 (08:37→16:06)
[2023-04-04] MEDS: LORazepam 2 MG TABLET PO PRN ×2 (08:37→16:06)
[2023-04-04] MEDS: MULTIVITAMINS WITH MINERALS, THERAPEUTIC TABLET PO SCH (08:37)
[2023-04-04] MEDS: BACITRACIN 28 GM OINTMENT TP SCH (08:38)
[2023-04-04] MEDS: HALOPERIDOL 5 MG TABLET PO PRN ×2 (08:38→16:06)
[2023-04-04] MEDS: QUEtiapine FUMARATE 300 MG TABLET PO SCH (20:19)
[2023-04-04] MEDS: DIVALPROEX SODIUM 500 MG DR TABLET PO SCH (20:20)
[2023-04-04] MEDS: HALOPERIDOL 10 MG TABLET PO SCH (20:21)
[2023-04-04 20:53] VITALS: BP 111/60; PULSE 91; RESP 18; TEMP 97.3
[2023-04-05] MEDS: BACITRACIN 28 GM OINTMENT TP SCH (05:29)
[2023-04-05] MEDS: LEVOTHYROXINE SODIUM 75 MCG TABLET PO SCH (06:03)
[2023-04-05] MEDS: MetFORMIN HCL 500 MG TABLET PO SCH ×2 (06:03→16:14)
[2023-04-05] MEDS: PROPRANOLOL HCL 10 MG TABLET PO SCH ×2 (08:08→16:14)
[2023-04-05] MEDS: MULTIVITAMINS WITH MINERALS, THERAPEUTIC TABLET PO SCH (08:08)
[2023-04-05] MEDS: HALOPERIDOL 5 MG TABLET PO PRN (08:08)
[2023-04-05] MEDS: LORazepam 2 MG TABLET PO PRN (08:09)
[2023-04-05 09:01] VITALS: BP 108/81; PULSE 96; RESP 17; TEMP 97.9; O2SAT 97
[2023-04-05] MEDS: DIVALPROEX SODIUM 500 MG DR TABLET PO SCH (20:43)
[2023-04-05] MEDS: QUEtiapine FUMARATE 300 MG TABLET PO SCH (20:44)
[2023-04-05] MEDS: HALOPERIDOL 10 MG TABLET PO SCH (20:44)
[2023-04-05 23:12] VITALS: BP 126/65; PULSE 89; RESP 18; TEMP 97.6; O2SAT 98
[2023-04-06] MEDS: LEVOTHYROXINE SODIUM 75 MCG TABLET PO SCH (06:31)
[2023-04-06] MEDS: MetFORMIN HCL 500 MG TABLET PO SCH ×2 (06:32→17:25)
[2023-04-06] MEDS: MULTIVITAMINS WITH MINERALS, THERAPEUTIC TABLET PO SCH (08:25)
[2023-04-06] MEDS: PROPRANOLOL HCL 10 MG TABLET PO SCH ×2 (08:25→17:25)
[2023-04-06 08:42] VITALS: BP 123/72; PULSE 100; RESP 18; TEMP 97.5; O2SAT 95
[2023-04-06] MEDS ORDERED: LORazepam 2 MG/ML VIAL ONE (16:09)
[2023-04-06] MEDS ORDERED: HALOPERIDOL LACTATE 5 MG/ML VIAL ONE (16:10)
[2023-04-06] MEDS ORDERED: DiphenhydrAMINE HCL 50 MG/ML VIAL ONE (16:10)
[2023-04-06] MEDS ORDERED: DiphenhydrAMINE HCL 50 MG/ML VIAL IM ONE ×2 (16:15→16:30)
[2023-04-06] MEDS ORDERED: LORazepam 2 MG/ML VIAL IM ONE ×2 (16:15→16:30)
[2023-04-06] MEDS ORDERED: HALOPERIDOL LACTATE 5 MG/ML VIAL IM ONE ×2 (16:15→16:30)
[2023-04-06] MEDS: QUEtiapine FUMARATE 300 MG TABLET PO SCH (20:05)
[2023-04-06] MEDS: DIVALPROEX SODIUM 500 MG DR TABLET PO SCH (20:05)
[2023-04-06] MEDS: HALOPERIDOL 10 MG TABLET PO SCH (20:06)
[2023-04-06 21:00] VITALS: BP 141/81; PULSE 96; RESP 18; TEMP 98
[2023-04-07] MEDS: LEVOTHYROXINE SODIUM 75 MCG TABLET PO SCH (06:24)
[2023-04-07] MEDS: MetFORMIN HCL 500 MG TABLET PO SCH ×2 (06:34→16:32)
[2023-04-07] MEDS: PROPRANOLOL HCL 10 MG TABLET PO SCH ×2 (08:28→16:32)
[2023-04-07] MEDS: MULTIVITAMINS WITH MINERALS, THERAPEUTIC TABLET PO SCH (08:28)
[2023-04-07 08:54] VITALS: RESP 18
[2023-04-07 16:00] VITALS: BP 127/72; PULSE 112
[2023-04-07] MEDS ORDERED: ARIPiprazole ER SUSPENSION 400 MG PRE-FILLED DUAL CHAMBER SYRINGE IM SCH (17:00)
[2023-04-07 20:28] VITALS: BP 133/90; PULSE 100; RESP 18; TEMP 97.9
[2023-04-07] MEDS: DIVALPROEX SODIUM 500 MG DR TABLET PO SCH (20:46)
[2023-04-07] MEDS: HALOPERIDOL 10 MG TABLET PO SCH (20:46)
[2023-04-07] MEDS: QUEtiapine FUMARATE 300 MG TABLET PO SCH (20:46)
[2023-04-08] MEDS: LEVOTHYROXINE SODIUM 75 MCG TABLET PO SCH (06:04)
[2023-04-08] MEDS: MetFORMIN HCL 500 MG TABLET PO SCH ×2 (06:04→16:04)
[2023-04-08] MEDS: MULTIVITAMINS WITH MINERALS, THERAPEUTIC TABLET PO SCH (08:06)
[2023-04-08] MEDS: PROPRANOLOL HCL 10 MG TABLET PO SCH ×2 (08:06→16:04)
[2023-04-08 09:29] VITALS: BP 100/58; PULSE 95; RESP 18; TEMP 98.4
[2023-04-08] MEDS: LORazepam 2 MG TABLET PO PRN ×2 (11:09→16:04)
[2023-04-08] MEDS: HALOPERIDOL 5 MG TABLET PO PRN ×2 (11:09→16:04)
[2023-04-08] MEDS: DIVALPROEX SODIUM 500 MG DR TABLET PO SCH (20:15)
[2023-04-08] MEDS: QUEtiapine FUMARATE 300 MG TABLET PO SCH (20:15)
[2023-04-08] MEDS: HALOPERIDOL 10 MG TABLET PO SCH (20:15)
[2023-04-09] MEDS: ZOLPIDEM TARTRATE 10 MG TABLET PO PRN ×2 (00:43→23:26)
[2023-04-09] MEDS: MetFORMIN HCL 500 MG TABLET PO SCH ×2 (06:26→16:27)
[2023-04-09] MEDS: LEVOTHYROXINE SODIUM 75 MCG TABLET PO SCH (06:26)
[2023-04-09 06:38] VITALS: RESP 18
[2023-04-09] MEDS: MULTIVITAMINS WITH MINERALS, THERAPEUTIC TABLET PO SCH (08:08)
[2023-04-09] MEDS: HALOPERIDOL 5 MG TABLET PO PRN ×2 (08:08→13:36)
[2023-04-09] MEDS: PROPRANOLOL HCL 10 MG TABLET PO SCH ×2 (08:08→16:27)
[2023-04-09] MEDS: LORazepam 2 MG TABLET PO PRN ×3 (08:08→20:47)
[2023-04-09 08:31] VITALS: BP 106/63; PULSE 76; RESP 16; TEMP 98; O2SAT 97
[2023-04-09 20:03] VITALS: BP 146/90; PULSE 98; RESP 18; TEMP 97.5
[2023-04-09] MEDS: DIVALPROEX SODIUM 500 MG DR TABLET PO SCH (20:47)
[2023-04-09] MEDS: HALOPERIDOL 10 MG TABLET PO SCH (20:47)
[2023-04-09] MEDS: QUEtiapine FUMARATE 300 MG TABLET PO SCH (20:47)
[2023-04-10] MEDS: LEVOTHYROXINE SODIUM 75 MCG TABLET PO SCH (06:30)
[2023-04-10] MEDS: MetFORMIN HCL 500 MG TABLET PO SCH ×2 (06:30→16:00)
[2023-04-10] MEDS: LORazepam 2 MG TABLET PO PRN ×2 (08:39→21:23)
[2023-04-10] MEDS: HALOPERIDOL 5 MG TABLET PO PRN (08:39)
[2023-04-10] MEDS: PROPRANOLOL HCL 10 MG TABLET PO SCH ×2 (08:39→16:00)
[2023-04-10] MEDS: MULTIVITAMINS WITH MINERALS, THERAPEUTIC TABLET PO SCH (08:39)
[2023-04-10 09:39] VITALS: BP 130/86; PULSE 89; RESP 18; TEMP 97.7; O2SAT 96
[2023-04-10] MEDS: ZOLPIDEM TARTRATE 10 MG TABLET PO PRN (20:00)
[2023-04-10] MEDS: QUEtiapine FUMARATE 300 MG TABLET PO SCH (20:00)
[2023-04-10] MEDS: DIVALPROEX SODIUM 500 MG DR TABLET PO SCH (20:00)
[2023-04-10] MEDS: HALOPERIDOL 10 MG TABLET PO SCH (20:00)
[2023-04-10 23:45] VITALS: BP 124/82; PULSE 78; RESP 18; TEMP 97.6; O2SAT 97
[2023-04-11] MEDS: LEVOTHYROXINE SODIUM 75 MCG TABLET PO SCH (06:34)
[2023-04-11] MEDS: MetFORMIN HCL 500 MG TABLET PO SCH ×2 (06:35→16:19)
[2023-04-11] MEDS: HALOPERIDOL 5 MG TABLET PO PRN ×2 (07:45→14:10)
[2023-04-11] MEDS: LORazepam 2 MG TABLET PO PRN ×3 (07:45→20:12)
[2023-04-11] MEDS: MULTIVITAMINS WITH MINERALS, THERAPEUTIC TABLET PO SCH (08:19)
[2023-04-11] MEDS: PROPRANOLOL HCL 10 MG TABLET PO SCH ×2 (08:19→16:19)
[2023-04-11 09:00] VITALS: BP 128/86; PULSE 88; RESP 18; TEMP 98.2; O2SAT 98
[2023-04-11] MEDS: ZOLPIDEM TARTRATE 10 MG TABLET PO PRN (20:12)
[2023-04-11] MEDS: QUEtiapine FUMARATE 300 MG TABLET PO SCH (20:12)
[2023-04-11] MEDS: DIVALPROEX SODIUM 500 MG DR TABLET PO SCH (20:13)
[2023-04-11] MEDS: HALOPERIDOL 10 MG TABLET PO SCH (20:13)
[2023-04-11 20:58] VITALS: BP 119/60; PULSE 101; RESP 17; TEMP 97.3; O2SAT 99
[2023-04-12] MEDS: LEVOTHYROXINE SODIUM 75 MCG TABLET PO SCH (06:51)
[2023-04-12] MEDS: MetFORMIN HCL 500 MG TABLET PO SCH ×2 (06:52→15:54)
[2023-04-12 08:29] VITALS: BP 130/80; PULSE 84; RESP 16; TEMP 98.6; O2SAT 96
[2023-04-12] MEDS: MULTIVITAMINS WITH MINERALS, THERAPEUTIC TABLET PO SCH (08:32)
[2023-04-12] MEDS: LORazepam 2 MG TABLET PO PRN ×2 (08:32→15:54)
[2023-04-12] MEDS: PROPRANOLOL HCL 10 MG TABLET PO SCH ×2 (08:32→15:54)
[2023-04-12] MEDS: HALOPERIDOL 5 MG TABLET PO PRN ×2 (08:32→15:54)
[2023-04-12 20:00] VITALS: BP 112/68; PULSE 103; RESP 18; TEMP 98; O2SAT 99
[2023-04-12] MEDS: ZOLPIDEM TARTRATE 10 MG TABLET PO PRN (20:09)
[2023-04-12] MEDS: HALOPERIDOL 10 MG TABLET PO SCH (20:09)
[2023-04-12] MEDS: DIVALPROEX SODIUM 500 MG DR TABLET PO SCH (20:09)
[2023-04-12] MEDS: QUEtiapine FUMARATE 300 MG TABLET PO SCH (20:09)
[2023-04-13] MEDS: LEVOTHYROXINE SODIUM 75 MCG TABLET PO SCH (06:09)
[2023-04-13] MEDS: MetFORMIN HCL 500 MG TABLET PO SCH ×2 (06:09→16:46)
[2023-04-13 08:26] VITALS: BP 150/79; PULSE 100; RESP 18; TEMP 98.9; O2SAT 97
[2023-04-13] MEDS: MULTIVITAMINS WITH MINERALS, THERAPEUTIC TABLET PO SCH (09:23)
[2023-04-13] MEDS: PROPRANOLOL HCL 10 MG TABLET PO SCH ×2 (09:23→16:46)
[2023-04-13] MEDS: DIVALPROEX SODIUM 500 MG DR TABLET PO SCH (20:06)
[2023-04-13] MEDS: HALOPERIDOL 10 MG TABLET PO SCH (20:08)
[2023-04-13] MEDS: QUEtiapine FUMARATE 300 MG TABLET PO SCH (20:08)
[2023-04-14 00:51] VITALS: BP 122/78; PULSE 97; RESP 18; TEMP 97.5; O2SAT 98
[2023-04-14 01:57] VITALS: RESP 18
[2023-04-14] MEDS: ZOLPIDEM TARTRATE 10 MG TABLET PO PRN (02:15)
[2023-04-14 03:00] VITALS: RESP 18
[2023-04-14] MEDS: HALOPERIDOL 5 MG TABLET PO PRN (04:36)
[2023-04-14] MEDS: LEVOTHYROXINE SODIUM 75 MCG TABLET PO SCH (06:03)
[2023-04-14] MEDS: MetFORMIN HCL 500 MG TABLET PO SCH (06:04)
[2023-04-14] MEDS: PROPRANOLOL HCL 10 MG TABLET PO SCH (08:06)
[2023-04-14] MEDS: MULTIVITAMINS WITH MINERALS, THERAPEUTIC TABLET PO SCH (08:06)
[2023-04-14] MEDS: LORazepam 2 MG TABLET PO PRN (08:06)
[2023-04-14 08:14] VITALS: BP 147/90; PULSE 100; RESP 18; TEMP 97.9; O2SAT 97
[2023-04-14] MEDS ORDERED: LEVO75CA5 PO (11:29)
[2023-04-14] MEDS ORDERED: DIVA500T53 PO (11:35)
[2023-04-14] MEDS ORDERED: HALO5TAB23 PO (11:37)
[2023-04-14] MEDS ORDERED: QUET300T2 PO (11:38)
[2023-04-14] MEDS ORDERED: ARIP400S3 IM ×2 (11:42→14:53)
[2023-04-14] MEDS ORDERED: QUET300T19 PO (14:53)
[2023-04-14] MEDS ORDERED: PROP10TA72 PO (14:53)
[2023-04-14] MEDS ORDERED: HALO10TA21 PO (14:53)
[2023-04-14] MEDS ORDERED: DIVA-112 PO (14:53)
== END 2023-04-14 13:37 | disposition home or self-care (01) | DRG 740 ==
LOC: EMS 17:31 → B3A 22:02
PROVIDERS: ADMIT Psychiatry & Neurology Child & Adolescent Psychiatry; ATTEND Psychiatry & Neurology Child & Adolescent Psychiatry
PROC: 0XQJXZZ Repair Right Hand, External Approach (ICD-10-PCS; principal; 2023-03-25)
PROC: GZHZZZZ Group Psychotherapy (ICD-10-PCS; 2023-03-28)
DX: F25.0 Schizoaffective disorder, bipolar type (principal); E87.1 Hypo-osmolality and hyponatremia; S61.411A Laceration without foreign body of right hand, initial encounter; E03.9 Hypothyroidism, unspecified; D64.9 Anemia, unspecified; E66.9 Obesity, unspecified; I10 Essential (primary) hypertension; F84.5 Asperger's syndrome; X58.XXXA Exposure to other specified factors, initial encounter; Y93.89 Activity, other specified; Y92.89 Other specified places as the place of occurrence of the external cause; Y99.8 Other external cause status; Z79.899 Other long term (current) drug therapy; Z68.41 Body mass index [BMI] 40.0-44.9, adult; Z79.84 Long term (current) use of oral hypoglycemic drugs; Z88.8 Allergy status to other drugs, medicaments and biological substances
CPT/HCPCS: 80053; 80061; 80307; 81003; 83036; 84439; 84443; 84703; 85025; 90715; 99285; G0480; J0401; J1200; J1630; J2060; J3490

== ENCOUNTER 2023-04-06 21:55 | Emergency (ER) | payer MEDICAID, OTHER ==
[~2023-04-06] VITALS: Ht 165.1 cm; Wt 111.8 kg
[~2023-04-06 21:55] MED LIST changes: -DIVA-112 PO; +DIVA500T52 PO; +HALO10TA21 PO; +METF-1211 PO; +PROP10TA10 PO; +QUET300T19 PO; -TRAZ-252 PO; -ZIPR60CA29 PO
[2023-04-06 23:30] VITALS: TEMP 98.4
[2023-04-07 00:17] LABS: BASOPHILS % (AUTO) 0.7 % (0.0-2.0); EOSINOPHILS % (AUTO) 0.7 % (1.0-6.0); HEMATOCRIT 31.6 % (36-46); HEMOGLOBIN 10.7 g/dL (12.0-16.0); LYMPHOCYTES # (AUTO) 4.1 K/uL (1.0-4.8); LYMPHOCYTES % (AUTO) 45.3 % (22.0-44.0); MEAN CORPUSCULAR HEMOGLOBIN 30.5 pg (26.0-34.0); MEAN CORPUSCULAR HGB CONC 33.8 G/dL (31.0-37.0); MEAN CORPUSCULAR VOLUME 90 fL (80-100); MONOCYTES # (AUTO) 0.8 K/uL (0.1-1.0); MONOCYTES % (AUTO) 8.8 % (2.0-9.0); NEUTROPHILS % (AUTO) 44.5 % (40.0-70.0); PLATELET COUNT (AUTO) 295 K/uL (150-450); RED BLOOD CELL COUNT(AUTO) 3.49 MIL/uL (4.00-5.20); RED CELL DISTRIBUTION WIDTH 14.5 % (11.5-14.5)
[2023-04-07 00:27] LABS: ANION GAP 5 mmol/L (8-16); CALCIUM, TOTAL 8.7 mg/dL (8.8-10.5); CARBON DIOXIDE 30 mmol/L (22-29); CHLORIDE 104 mmol/L (98-107); CREATININE 0.53 mg/dL (0.60-1.30); GLOMERULAR FILTR. RATE CALC > 60 mL/min (>60); GLUCOSE,RANDOM 88 mg/dL (70-110); POTASSIUM 4.2 mmol/L (3.5-5.1); SODIUM SERUM 139 mmol/L (136-145); UREA NITROGEN, BLOOD 8 mg/dL (7-18)
[2023-04-07 00:32] LABS: ALANINE AMINOTRANSFERASE 42 U/L (12-78); ALBUMIN 3.2 g/dL (3.4-5.0); ALKALINE PHOSPHATASE 63 U/L (46-116); ASPARTATE AMINOTRANSFERASE 25 U/L (15-37); BILIRUBIN,TOTAL 0.2 mg/dL (0.1-1.0); TOTAL PROTEIN, SERUM 7.2 g/dL (6.4-8.2)
[2023-04-07 00:39] LABS: ALCOHOL, BLOOD (SERUM) < 3 mg/dL (0-10)
[2023-04-07 03:50] VITALS: BP 110/60; PULSE 78; RESP 16
== END 2023-04-07 03:51 | disposition short-term general hospital (02) ==
LOC: EMS 21:56
DX: F20.9 Schizophrenia, unspecified (principal); E11.9 Type 2 diabetes mellitus without complications; I10 Essential (primary) hypertension; F41.9 Anxiety disorder, unspecified; K59.00 Constipation, unspecified; F31.9 Bipolar disorder, unspecified; Z87.440 Personal history of urinary (tract) infections; F17.210 Nicotine dependence, cigarettes, uncomplicated; Z88.8 Allergy status to other drugs, medicaments and biological substances
CPT/HCPCS: 99285; 80053; 85025; 36415; G0480

== ENCOUNTER 2023-05-11 | Inpatient (IN) | payer MEDICAID, OTHER ==
[~2023-05-11] VITALS: Ht 162.6 cm; Wt 112.5 kg
[~2023-05-11] MED LIST changes: +ARIP400S3 IM; +DIVA-112 PO; -DIVA500T52 PO; +DIVA500T53 PO; +HALO5TAB23 PO; +LEVO75CA5 PO; +PROP10TA72 PO; +QUET300T2 PO
[2023-05-11 00:47] LABS: COVID AG,FIA SOURCE NASAL SWAB
[2023-05-11 01:06] LABS: SARS-COV2 (COVID) ANTIGEN,FIA Negative (Negative)
[2023-05-11] MEDS ORDERED: HALOPERIDOL 5 MG TABLET PO ONE (01:15)
[2023-05-11] MEDS ORDERED: LORazepam 1 MG TABLET PO ONE (01:15)
[2023-05-11 02:15] LABS: HEMOGLOBIN 12.8 g/dL (12.0-16.0); LYMPHOCYTES # (AUTO) 2.7 K/uL (1.0-4.8); MONOCYTES # (AUTO) 0.6 K/uL (0.1-1.0); NEUTROPHILS % (AUTO) 69.8 % (40.0-70.0)
[2023-05-11 02:20] LABS: BASOPHILS % (AUTO) 0.5 % (0.0-2.0); EOSINOPHILS % (AUTO) 0.4 % (1.0-6.0); MEAN CORPUSCULAR HEMOGLOBIN 30.8 pg (26.0-34.0); MEAN CORPUSCULAR HGB CONC 33.7 G/dL (31.0-37.0); MEAN CORPUSCULAR VOLUME 92 fL (80-100); MONOCYTES % (AUTO) 5.3 % (2.0-9.0); NEUTROPHILS # (AUTO) 7.7 K/uL (1.8-7.7); RED BLOOD CELL COUNT(AUTO) 4.16 MIL/uL (4.00-5.20); RED CELL DISTRIBUTION WIDTH 14.3 % (11.5-14.5); WHITE BLOOD COUNT (AUTO) 11.1 K/uL (4.5-11.0)
[2023-05-11 02:27] LABS: ANION GAP 13 mmol/L (8-16); CALCIUM, TOTAL 9.2 mg/dL (8.8-10.5); CARBON DIOXIDE 24 mmol/L (22-29); CHLORIDE 100 mmol/L (98-107); CREATININE 0.58 mg/dL (0.60-1.30); GLOMERULAR FILTR. RATE CALC > 60 mL/min (>60); GLUCOSE,RANDOM 100 mg/dL (70-110); POTASSIUM 3.6 mmol/L (3.5-5.1); SODIUM SERUM 137 mmol/L (136-145); UREA NITROGEN, BLOOD 11 mg/dL (7-18)
[2023-05-11 02:34] LABS: ALANINE AMINOTRANSFERASE 22 U/L (12-78); ALBUMIN 4.1 g/dL (3.4-5.0); ALKALINE PHOSPHATASE 72 U/L (46-116); ASPARTATE AMINOTRANSFERASE 20 U/L (15-37); BILIRUBIN,TOTAL 0.1 mg/dL (0.1-1.0); TOTAL PROTEIN, SERUM 8.6 g/dL (6.4-8.2)
[2023-05-11 02:37] LABS: ALCOHOL, BLOOD (SERUM) < 3 mg/dL (0-10)
[2023-05-11 02:38] LABS: PLATELET COUNT (AUTO) 318 K/uL (150-450)
[2023-05-11 03:07] LABS: APPEARANCE,URINE CLEAR (CLEAR); BILIRUBIN,URINE NEGATIVE (NEGATIVE); COLOR,URINE LIGHT YELLOW (YELLOW); GLUCOSE, URINE (UA) NEGATIVE (NEGATIVE); KETONES,URINE TRACE mg/dL (NEGATIVE); LEUKOCYTE ESTERASE ,URINE NEGATIVE (NEGATIVE); NITRATE,URINE NEGATIVE (NEGATIVE); OCCULT BLOOD,URINE NEGATIVE (NEGATIVE); PROTEIN,URINE NEGATIVE (NEGATIVE); SPECIFIC GRAVITIY, URINE 1.018 (1.003-1.030); UROBILINOGEN,URINE <=1.0 mg/dL (<=1.0)
[2023-05-11 03:13] LABS: ALCOHOL, URINE DRUG SCREEN NEGATIVE (NEGATIVE); AMPHET/METH SCREEN,URINE NEGATIVE (NEGATIVE); BARBITURATE SCREEN, URINE NEGATIVE (NEGATIVE); BENZODIAZEPINES SCREEN,URINE NEGATIVE (NEGATIVE); CANNABINOID SCREEN,URINE NEGATIVE (NEGATIVE); COCAINE SCREEN,URINE NEGATIVE (NEGATIVE); METHADONE SCREEN, URINE NEGATIVE (NEGATIVE); OPIATE SCREEN,URINE NEGATIVE (NEGATIVE); PHENCYCLIDINE SCREEN,URINE NEGATIVE (NEGATIVE)
[2023-05-11 04:40] VITALS: BP 130/73; PULSE 115; RESP 18; TEMP 97.7; O2SAT 97
[2023-05-11 06:46] LABS: GLUCOMETER DEV NAME(LOC) BV3S.; GLUCOSE,POINT OF CARE 95 MG/DL (70-110)
[2023-05-11 08:19] VITALS: RESP 18
[2023-05-11] MEDS: HALOPERIDOL 5 MG TABLET PO PRN ×2 (08:22→16:13)
[2023-05-11] MEDS: LORazepam 1 MG TABLET PO PRN ×2 (08:23→16:13)
[2023-05-11] MEDS: ARIPiprazole 15 MG TABLET PO SCH (10:03)
[2023-05-11] MEDS ORDERED: MAGNESIUM HYDROXIDE SUSPENSION 30 ML UDCUP PO PRN (11:00)
[2023-05-11] MEDS ORDERED: MAG HYDROX/ALUMINUM HYD/SIMETH ES 30 ML SUSPENSION UDCUP PO PRN (11:00)
[2023-05-11] MEDS ORDERED: GuaiFENesin/D-METHORPHAN [SUGAR-FREE] 200-20MG/10 ML SYRUP UDCUP PO PRN (11:00)
[2023-05-11] MEDS ORDERED: ALBUTEROL SULFATE HFA 90 MCG/PUFF 8 GM INHALER IH PRN (11:00)
[2023-05-11] MEDS ORDERED: LOPERAMIDE HCL 2 MG CAPSULE PO PRN (11:00)
[2023-05-11] MEDS ORDERED: PETROLATUM,WHITE 28 GM JELLY TP PRN (11:00)
[2023-05-11] MEDS ORDERED: DOCUSATE SODIUM 100 MG CAPSULE PO PRN (11:00)
[2023-05-11] MEDS ORDERED: NICOTINE 14 MG/24 HOUR PATCH TD PRN (11:00)
[2023-05-11] MEDS ORDERED: IBUPROFEN 400 MG TABLET PO PRN (11:00)
[2023-05-11] MEDS ORDERED: ONDANSETRON HCL 4 MG TABLET PO PRN (11:00)
[2023-05-11] MEDS ORDERED: CloNIDine HCL 0.1 MG TABLET PO PRN (11:00)
[2023-05-11] MEDS ORDERED: ACETAMINOPHEN 325 MG TABLET PO PRN (11:00)
[2023-05-11] MEDS: PROPRANOLOL HCL 10 MG TABLET PO SCH (16:43)
[2023-05-11] MEDS: MetFORMIN HCL 500 MG TABLET PO SCH (16:43)
[2023-05-11] MEDS: QUEtiapine FUMARATE 300 MG TABLET PO SCH (21:23)
[2023-05-11] MEDS: DIVALPROEX SODIUM 500 MG DR TABLET PO SCH (21:24)
[2023-05-11] MEDS: HALOPERIDOL 10 MG TABLET PO SCH (21:24)
[2023-05-11] MEDS: ZOLPIDEM TARTRATE 10 MG TABLET PO PRN (21:24)
[2023-05-11 21:51] VITALS: BP 128/72; PULSE 63; RESP 18; TEMP 97.5; O2SAT 97
[2023-05-12] MEDS: LEVOTHYROXINE SODIUM 75 MCG TABLET PO SCH (06:05)
[2023-05-12] MEDS: MetFORMIN HCL 500 MG TABLET PO SCH ×2 (06:05→16:39)
[2023-05-12] MEDS: PROPRANOLOL HCL 10 MG TABLET PO SCH ×2 (08:25→16:39)
[2023-05-12] MEDS: ARIPiprazole 15 MG TABLET PO SCH (08:25)
[2023-05-12 08:44] LABS: CHOL/HDL RATIO 2.7 (3.9-5.7); THYROID STIMULATING HORMONE 7.47 uIU/mL (0.36-3.74)
[2023-05-12 08:45] VITALS: RESP 18
[2023-05-12] MEDS: LORazepam 1 MG TABLET PO PRN ×2 (10:43→16:04)
[2023-05-12 20:05] VITALS: BP 116/73; PULSE 92; RESP 18; TEMP 97.5
[2023-05-12] MEDS ORDERED: PNEUMOCOCCAL VACCINE POLYVALENT 0.5 ML SYRINGE [PPSV23] IM. ONE (21:00)
[2023-05-12] MEDS ORDERED: INFLUENZA VIRUS VACCINE QVS 2023-24 (6MO+)/PF 60 MCG/0.5 ML SYRINGE IM. ONE (21:00)
[2023-05-12] MEDS: HALOPERIDOL 10 MG TABLET PO SCH (21:53)
[2023-05-12] MEDS: QUEtiapine FUMARATE 300 MG TABLET PO SCH (21:53)
[2023-05-12] MEDS: DIVALPROEX SODIUM 500 MG DR TABLET PO SCH (21:53)
[2023-05-13] MEDS: LEVOTHYROXINE SODIUM 75 MCG TABLET PO SCH (06:23)
[2023-05-13] MEDS: MetFORMIN HCL 500 MG TABLET PO SCH ×2 (06:43→16:20)
[2023-05-13 08:31] VITALS: BP 132/88; PULSE 96; RESP 17; TEMP 97.9; O2SAT 99
[2023-05-13] MEDS: ARIPiprazole 15 MG TABLET PO SCH (08:37)
[2023-05-13] MEDS: PROPRANOLOL HCL 10 MG TABLET PO SCH ×2 (08:37→16:20)
[2023-05-13] MEDS: LORazepam 1 MG TABLET PO PRN (08:38)
[2023-05-13] MEDS: HALOPERIDOL 5 MG TABLET PO PRN (08:38)
[2023-05-13 20:06] VITALS: BP 142/74; PULSE 86; RESP 18; TEMP 97.7; O2SAT 97
[2023-05-13] MEDS: QUEtiapine FUMARATE 300 MG TABLET PO SCH (20:07)
[2023-05-13] MEDS: DIVALPROEX SODIUM 500 MG DR TABLET PO SCH (20:07)
[2023-05-13] MEDS: ZOLPIDEM TARTRATE 10 MG TABLET PO PRN (20:07)
[2023-05-13] MEDS: HALOPERIDOL 10 MG TABLET PO SCH (20:07)
[2023-05-14] MEDS: MetFORMIN HCL 500 MG TABLET PO SCH ×2 (06:06→16:36)
[2023-05-14] MEDS: LEVOTHYROXINE SODIUM 75 MCG TABLET PO SCH (06:06)
[2023-05-14] MEDS: PROPRANOLOL HCL 10 MG TABLET PO SCH ×2 (08:19→16:37)
[2023-05-14] MEDS: ARIPiprazole 15 MG TABLET PO SCH (08:19)
[2023-05-14 08:44] VITALS: RESP 18
[2023-05-14] MEDS: HALOPERIDOL 5 MG TABLET PO PRN (16:37)
[2023-05-14] MEDS: QUEtiapine FUMARATE 300 MG TABLET PO SCH (20:33)
[2023-05-14] MEDS: DIVALPROEX SODIUM 500 MG DR TABLET PO SCH (20:33)
[2023-05-14] MEDS: HALOPERIDOL 10 MG TABLET PO SCH (20:33)
[2023-05-14] MEDS: LORazepam 1 MG TABLET PO PRN (20:33)
[2023-05-14 21:20] VITALS: BP 122/69; PULSE 91; RESP 17; TEMP 97.7; O2SAT 98
[2023-05-14] MEDS: ZOLPIDEM TARTRATE 10 MG TABLET PO PRN (21:28)
[2023-05-15] MEDS: MetFORMIN HCL 500 MG TABLET PO SCH ×2 (06:20→16:35)
[2023-05-15] MEDS: LEVOTHYROXINE SODIUM 75 MCG TABLET PO SCH (06:20)
[2023-05-15] MEDS: PROPRANOLOL HCL 10 MG TABLET PO SCH ×2 (08:24→16:35)
[2023-05-15] MEDS: LORazepam 1 MG TABLET PO PRN (08:24)
[2023-05-15] MEDS: ARIPiprazole 15 MG TABLET PO SCH (08:24)
[2023-05-15] MEDS: HALOPERIDOL 5 MG TABLET PO PRN (08:24)
[2023-05-15 09:58] VITALS: BP 110/59; PULSE 91; RESP 18; TEMP 97.8; O2SAT 98
[2023-05-15 20:01] VITALS: BP 102/59; PULSE 88; RESP 18; TEMP 97.5; O2SAT 99
[2023-05-15] MEDS: DIVALPROEX SODIUM 500 MG DR TABLET PO SCH (20:26)
[2023-05-15] MEDS: QUEtiapine FUMARATE 300 MG TABLET PO SCH (20:26)
[2023-05-15] MEDS: HALOPERIDOL 10 MG TABLET PO SCH (20:26)
[2023-05-16] MEDS: LEVOTHYROXINE SODIUM 75 MCG TABLET PO SCH (06:00)
[2023-05-16] MEDS: MetFORMIN HCL 500 MG TABLET PO SCH ×2 (06:00→16:18)
[2023-05-16] MEDS: PROPRANOLOL HCL 10 MG TABLET PO SCH ×2 (08:18→16:18)
[2023-05-16] MEDS: ARIPiprazole 15 MG TABLET PO SCH (08:18)
[2023-05-16] MEDS: HALOPERIDOL 5 MG TABLET PO PRN ×2 (08:18→16:18)
[2023-05-16] MEDS: LORazepam 1 MG TABLET PO PRN ×2 (08:18→16:18)
[2023-05-16 09:03] VITALS: BP 116/72; PULSE 83; RESP 16; TEMP 98.4; O2SAT 98
[2023-05-16] MEDS: QUEtiapine FUMARATE 300 MG TABLET PO SCH (20:46)
[2023-05-16] MEDS: DIVALPROEX SODIUM 500 MG DR TABLET PO SCH (20:47)
[2023-05-16] MEDS: ZOLPIDEM TARTRATE 10 MG TABLET PO PRN (20:47)
[2023-05-17 01:09] VITALS: BP 125/75; PULSE 85; RESP 18; TEMP 97.8
[2023-05-17] MEDS: LEVOTHYROXINE SODIUM 75 MCG TABLET PO SCH (06:07)
[2023-05-17] MEDS: MetFORMIN HCL 500 MG TABLET PO SCH ×2 (06:07→16:02)
[2023-05-17] MEDS: PROPRANOLOL HCL 10 MG TABLET PO SCH ×2 (08:12→16:02)
[2023-05-17] MEDS: ARIPiprazole 15 MG TABLET PO SCH (08:13)
[2023-05-17] MEDS ORDERED: QUET300T19 PO (16:28)
[2023-05-17] MEDS ORDERED: ARIP15TA27 PO (16:28)
[2023-05-17] MEDS ORDERED: DIVA-112 PO (16:28)
== END 2023-05-17 18:21 | disposition home or self-care (01) | DRG 750 ==
LOC: EMS 00:02 → B3A 02:30
PROVIDERS: ADMIT Psychiatry & Neurology Child & Adolescent Psychiatry; ATTEND Psychiatry & Neurology Child & Adolescent Psychiatry
PROC: GZHZZZZ Group Psychotherapy (ICD-10-PCS; principal; 2023-05-11)
DX: F25.0 Schizoaffective disorder, bipolar type (principal); E11.9 Type 2 diabetes mellitus without complications; D72.829 Elevated white blood cell count, unspecified; E03.9 Hypothyroidism, unspecified; E66.9 Obesity, unspecified; F17.210 Nicotine dependence, cigarettes, uncomplicated; F41.9 Anxiety disorder, unspecified; Z20.822 Contact with and (suspected) exposure to COVID-19; I10 Essential (primary) hypertension; G47.00 Insomnia, unspecified; F84.5 Asperger's syndrome; Z88.8 Allergy status to other drugs, medicaments and biological substances; Z79.899 Other long term (current) drug therapy; Z68.41 Body mass index [BMI] 40.0-44.9, adult; Z59.00 Homelessness unspecified
CPT/HCPCS: 80053; 80061; 80164; 80307; 81003; 82962; 83036; 84443; 84703; 85025; 87081; 99285; G0480

== ENCOUNTER 2024-01-12 05:09 | Emergency (ER) | payer MEDICAID, OTHER ==
[~2024-01-12] VITALS: Ht 165.1 cm; Wt 80.0 kg
[~2024-01-12 05:09] MED LIST changes: +ARIP15TA27 PO; -ARIP400S3 IM; -DIVA500T53 PO; -HALO10TA21 PO; -HALO5TAB23 PO; -PROP10TA72 PO; -QUET300T2 PO
[2024-01-12 05:36] VITALS: TEMP 98.5
[2024-01-12 05:52] LABS: BASOPHILS % (AUTO) 0.6 % (0.0-2.0); EOSINOPHILS % (AUTO) 3.8 % (1.0-6.0); HEMATOCRIT 35.6 % (36-46); HEMOGLOBIN 11.9 g/dL (12.0-16.0); LYMPHOCYTES # (AUTO) 2.8 K/uL (1.0-4.8); LYMPHOCYTES % (AUTO) 36.5 % (22.0-44.0); MEAN CORPUSCULAR HGB CONC 33.3 G/dL (31.0-37.0); MEAN CORPUSCULAR VOLUME 93 fL (80-100); MONOCYTES # (AUTO) 0.7 K/uL (0.1-1.0); MONOCYTES % (AUTO) 9.3 % (2.0-9.0); NEUTROPHILS # (AUTO) 3.8 K/uL (1.8-7.7); NEUTROPHILS % (AUTO) 49.8 % (40.0-70.0); PLATELET COUNT (AUTO) 283 K/uL (150-450); RED BLOOD CELL COUNT(AUTO) 3.83 MIL/uL (4.00-5.20); RED CELL DISTRIBUTION WIDTH 14.4 % (11.5-14.5); WHITE BLOOD COUNT (AUTO) 7.7 K/uL (4.5-11.0)
[2024-01-12 06:02] LABS: ANION GAP 7 mmol/L (8-16); CALCIUM, TOTAL 8.4 mg/dL (8.8-10.5); CARBON DIOXIDE 26 mmol/L (22-29); CHLORIDE 103 mmol/L (98-107); CREATININE 0.48 mg/dL (0.60-1.30); GLOMERULAR FILTR. RATE CALC > 60 mL/min (>60); GLUCOSE,RANDOM 145 mg/dL (70-110); POTASSIUM 3.4 mmol/L (3.5-5.1); SODIUM SERUM 136 mmol/L (136-145); UREA NITROGEN, BLOOD 17 mg/dL (7-18)
[2024-01-12 06:23] LABS: TROPONIN I-HIGH SENSITIVITY Less Than 4 ng/L (<51)
[2024-01-12 07:34] VITALS: BP 110/63; PULSE 88; RESP 18; O2SAT 99
[2024-01-12] MEDS: POTASSIUM CHLORIDE 20 MEQ ER TABLET PO ONE (07:40)
== END 2024-01-12 07:56 | disposition home or self-care (01) ==
LOC: EMS 05:10
DX: R00.2 Palpitations (principal); E87.6 Hypokalemia; F17.210 Nicotine dependence, cigarettes, uncomplicated; E11.9 Type 2 diabetes mellitus without complications; I10 Essential (primary) hypertension; Z88.8 Allergy status to other drugs, medicaments and biological substances
CPT/HCPCS: 80048; 84484; 84703; 85025; 93005; 99284

== ENCOUNTER 2024-04-10 11:05 | Inpatient (IN) | payer MEDICAID, OTHER ==
[~2024-04-10] VITALS: Ht 167.6 cm; Wt 112.7 kg
[2024-04-10 11:54] LABS: BASOPHILS % (AUTO) 0.6 % (0.0-2.0); EOSINOPHILS % (AUTO) 1.2 % (1.0-6.0); HEMATOCRIT 38.3 % (36-46); HEMOGLOBIN 12.9 g/dL (12.0-16.0); LYMPHOCYTES # (AUTO) 1.9 K/uL (1.0-4.8); LYMPHOCYTES % (AUTO) 25.7 % (22.0-44.0); MEAN CORPUSCULAR HEMOGLOBIN 31.2 pg (26.0-34.0); MEAN CORPUSCULAR HGB CONC 33.7 G/dL (31.0-37.0); MEAN CORPUSCULAR VOLUME 93 fL (80-100); MONOCYTES # (AUTO) 0.6 K/uL (0.1-1.0); MONOCYTES % (AUTO) 8.8 % (2.0-9.0); NEUTROPHILS # (AUTO) 4.7 K/uL (1.8-7.7); NEUTROPHILS % (AUTO) 63.7 % (40.0-70.0); PLATELET COUNT (AUTO) 251 K/uL (150-450); RED BLOOD CELL COUNT(AUTO) 4.14 MIL/uL (4.00-5.20); RED CELL DISTRIBUTION WIDTH 13.8 % (11.5-14.5); WHITE BLOOD COUNT (AUTO) 7.3 K/uL (4.5-11.0)
[2024-04-10 12:05] LABS: ANION GAP 12 mmol/L (8-16); CALCIUM, TOTAL 9.2 mg/dL (8.8-10.5); CARBON DIOXIDE 26 mmol/L (22-29); CHLORIDE 100 mmol/L (98-107); CREATININE 0.55 mg/dL (0.60-1.30); GLOMERULAR FILTR. RATE CALC > 60 mL/min (>60); GLUCOSE,RANDOM 130 mg/dL (70-110); POTASSIUM 3.8 mmol/L (3.5-5.1); SODIUM SERUM 138 mmol/L (136-145); UREA NITROGEN, BLOOD 10 mg/dL (7-18)
[2024-04-10 12:19] LABS: ALCOHOL, BLOOD (SERUM) < 3 mg/dL (0-10)
[2024-04-10 12:47] LABS: COVID AG,FIA SOURCE NASAL SWAB
[2024-04-10] MEDS: BACITRACIN 0.9 GM PACKET OINTMENT TP ONE (12:55)
[2024-04-10] MEDS: PERTUSS(ACELL),DIPH,TET/PF 0.5 ML SYRINGE [ADULT] IM. ONE (12:56)
[2024-04-10 13:10] LABS: ALCOHOL, URINE DRUG SCREEN NEGATIVE (NEGATIVE); AMPHET/METH SCREEN,URINE NEGATIVE (NEGATIVE); BARBITURATE SCREEN, URINE NEGATIVE (NEGATIVE); BENZODIAZEPINES SCREEN,URINE NEGATIVE (NEGATIVE); CANNABINOID SCREEN,URINE NEGATIVE (NEGATIVE); COCAINE SCREEN,URINE NEGATIVE (NEGATIVE); METHADONE SCREEN, URINE NEGATIVE (NEGATIVE); OPIATE SCREEN,URINE NEGATIVE (NEGATIVE); PHENCYCLIDINE SCREEN,URINE NEGATIVE (NEGATIVE)
[2024-04-10 13:49] LABS: SARS-COV2 (COVID) ANTIGEN,FIA Negative (Negative)
[2024-04-10] MEDS ORDERED: PRAZ1 PO (14:46)
[2024-04-10] MEDS ORDERED: DIVA-112 PO (14:46)
[2024-04-10] MEDS ORDERED: HALO5TAB23 PO (14:46)
[2024-04-10] MEDS ORDERED: HALO100A IM (14:46)
[2024-04-10] MEDS ORDERED: ARIP300S IM (14:46)
[2024-04-10] MEDS: LORazepam 2 MG TABLET PO ONE (14:55)
[2024-04-10] MEDS: HALOPERIDOL 5 MG TABLET PO ONE (14:56)
[2024-04-10] MEDS: DiphenhydrAMINE HCL 25 MG CAPSULE PO ONE (14:56)
[2024-04-10] MEDS ORDERED: METF-81 PO (15:04)
[2024-04-10 22:46] VITALS: O2SAT 98
[2024-04-11] MEDS ORDERED: INFLUENZA VIRUS VACCINE TVS (6MO+) 2024-25/PF 45 MCG/0.5 ML SYRINGE IM. ONE (00:15)
[2024-04-11] MEDS ORDERED: PNEUMOCOCCAL VACCINE POLYVALENT 0.5 ML SYRINGE [PPSV23] IM. ONE (00:30)
[2024-04-11 00:46] VITALS: BP 142/81; PULSE 97; RESP 18; TEMP 97.8
[2024-04-11] MEDS ORDERED: NICOTINE 14 MG/24 HOUR PATCH TD PRN ×2 (07:00→09:15)
[2024-04-11] MEDS ORDERED: GuaiFENesin/D-METHORPHAN [SUGAR-FREE] 200-20MG/10 ML SYRUP UDCUP PO PRN ×2 (07:00→09:15)
[2024-04-11] MEDS ORDERED: MAG HYDROX/ALUMINUM HYD/SIMETH ES 30 ML SUSPENSION UDCUP PO PRN ×2 (07:00→09:15)
[2024-04-11] MEDS ORDERED: ALBUTEROL SULFATE HFA 90 MCG/PUFF 8 GM INHALER IH PRN ×2 (07:00→09:15)
[2024-04-11] MEDS ORDERED: ACETAMINOPHEN 325 MG TABLET PO PRN (07:00)
[2024-04-11] MEDS ORDERED: ONDANSETRON 4 MG TABLET PO PRN ×2 (07:00→09:15)
[2024-04-11] MEDS ORDERED: CloNIDine HCL 0.1 MG TABLET PO PRN (07:00)
[2024-04-11] MEDS ORDERED: PETROLATUM,WHITE 28 GM JELLY TP PRN ×2 (07:00→09:15)
[2024-04-11] MEDS ORDERED: MAGNESIUM HYDROXIDE SUSPENSION 30 ML UDCUP PO PRN ×2 (07:00→09:15)
[2024-04-11] MEDS ORDERED: IBUPROFEN 400 MG TABLET PO PRN ×2 (07:00→09:15)
[2024-04-11] MEDS ORDERED: DOCUSATE SODIUM 100 MG CAPSULE PO PRN ×2 (07:00→09:15)
[2024-04-11] MEDS ORDERED: LOPERAMIDE HCL 2 MG CAPSULE PO PRN ×2 (07:00→09:15)
[2024-04-11 08:07] VITALS: BP 131/81; PULSE 100; RESP 16; TEMP 96.9; O2SAT 97
[2024-04-11] MEDS: BACITRACIN 28 GM OINTMENT TP SCH (09:01)
[2024-04-11] MEDS: PROPRANOLOL HCL 10 MG TABLET PO SCH (09:40)
[2024-04-11] MEDS: LORazepam 2 MG TABLET PO PRN (14:51)
[2024-04-11] MEDS: HALOPERIDOL 5 MG TABLET PO PRN (14:51)
[2024-04-11] MEDS ORDERED: ARIP400S IM (15:28)
[2024-04-11] MEDS ORDERED: QUET100T34 PO (15:30)
[2024-04-11] MEDS: MetFORMIN HCL 500 MG ER TABLET PO SCH (16:25)
[2024-04-11 20:13] VITALS: BP 103/70; PULSE 70; RESP 18; TEMP 98; O2SAT 100
[2024-04-11] MEDS: QUEtiapine FUMARATE 100 MG TABLET PO SCH (20:23)
[2024-04-11] MEDS: DIVALPROEX SODIUM 500 MG DR TABLET PO SCH (20:23)
[2024-04-11] MEDS: PRAZOSIN HCL 1 MG CAPSULE PO SCH (20:23)
[2024-04-12 08:27] VITALS: BP 120/62; PULSE 70; RESP 16; TEMP 97.6; O2SAT 96
[2024-04-12] MEDS: DIVALPROEX SODIUM 500 MG DR TABLET PO SCH (08:56)
[2024-04-12 09:04] VITALS: BP 107/64; PULSE 90; RESP 16; O2SAT 98
[2024-04-12 10:09] LABS: HEMOGLOBIN A1C 6.7 % (3.8-5.6)
[2024-04-12 12:51] LABS: APPEARANCE,URINE CLEAR (CLEAR); BILIRUBIN,URINE NEGATIVE (NEGATIVE); COLOR,URINE YELLOW (YELLOW); GLUCOSE, URINE (UA) NEGATIVE (NEGATIVE); KETONES,URINE NEGATIVE (NEGATIVE); LEUKOCYTE ESTERASE ,URINE NEGATIVE (NEGATIVE); NITRATE,URINE NEGATIVE (NEGATIVE); OCCULT BLOOD,URINE NEGATIVE (NEGATIVE); PH,URINE 6.5 (5.0-8.0); PH,URINE DRUG SCREEN 6.5 (5.0-8.0); PROTEIN,URINE NEGATIVE (NEGATIVE); SPECIFIC GRAVITIY, URINE 1.009 (1.003-1.030)
[2024-04-12 12:59] LABS: ALCOHOL, URINE DRUG SCREEN NEGATIVE (NEGATIVE)
[2024-04-12 13:00] LABS: AMPHET/METH SCREEN,URINE NEGATIVE (NEGATIVE); BARBITURATE SCREEN, URINE NEGATIVE (NEGATIVE); BENZODIAZEPINES SCREEN,URINE NEGATIVE (NEGATIVE); CANNABINOID SCREEN,URINE NEGATIVE (NEGATIVE); COCAINE SCREEN,URINE NEGATIVE (NEGATIVE); METHADONE SCREEN, URINE NEGATIVE (NEGATIVE); OPIATE SCREEN,URINE NEGATIVE (NEGATIVE); PHENCYCLIDINE SCREEN,URINE NEGATIVE (NEGATIVE)
[2024-04-12 13:05] LABS: CHOL/HDL RATIO 3.1 (3.9-5.7)
[2024-04-12 13:06] LABS: FREE T4 (FREE THYROXINE) 1.18 ng/dL (0.76-1.46); THYROID STIMULATING HORMONE 5.38 uIU/mL (0.36-3.74)
[2024-04-12 20:04] VITALS: BP 143/87; PULSE 102; RESP 18; TEMP 97.6; O2SAT 97
[2024-04-12] MEDS: ACETAMINOPHEN 325 MG TABLET PO PRN (21:32)
[2024-04-13 08:09] VITALS: BP 108/60; PULSE 81; RESP 17; TEMP 97.5; O2SAT 98
[2024-04-13 12:18] VITALS: RESP 17
[2024-04-13 13:18] VITALS: RESP 17
[2024-04-13 20:00] VITALS: RESP 16
[2024-04-14 08:09] VITALS: BP 116/72; PULSE 79; RESP 16; TEMP 97.6; O2SAT 98
[2024-04-14] MEDS: ARIPiprazole ER SUSPENSION 400 MG PRE-FILLED DUAL CHAMBER SYRINGE IM SCH (10:12)
[2024-04-14 20:37] VITALS: BP 128/69; PULSE 88; RESP 16; TEMP 97.7; O2SAT 96
[2024-04-15 08:04] VITALS: BP 104/65; PULSE 76; RESP 16; TEMP 97.2; O2SAT 98
[2024-04-15] MEDS ORDERED: PROP10TA73 PO (22:49)
[2024-04-15] MEDS ORDERED: PRAZ1 PO (22:49)
[2024-04-15] MEDS ORDERED: QUET100T PO (22:49)
[2024-04-15] MEDS ORDERED: METF-81 PO (22:49)
[2024-04-15] MEDS ORDERED: DIVA-112 PO ×2 (22:49)
== END 2024-04-15 18:58 | disposition home or self-care (01) | DRG 750 ==
LOC: EMS 11:05 → B3A 22:53
PROVIDERS: ADMIT Psychiatry & Neurology Child & Adolescent Psychiatry; ATTEND Psychiatry & Neurology Child & Adolescent Psychiatry
PROC: GZ56ZZZ Individual Psychotherapy, Supportive (ICD-10-PCS; principal; 2024-04-11)
PROC: GZ52ZZZ Individual Psychotherapy, Cognitive (ICD-10-PCS; 2024-04-11)
PROC: GZHZZZZ Group Psychotherapy (ICD-10-PCS; 2024-04-11)
DX: F25.0 Schizoaffective disorder, bipolar type (principal); R45.851 Suicidal ideations; E11.9 Type 2 diabetes mellitus without complications; Z20.822 Contact with and (suspected) exposure to COVID-19; E03.9 Hypothyroidism, unspecified; I10 Essential (primary) hypertension; F41.9 Anxiety disorder, unspecified; K59.00 Constipation, unspecified; G47.00 Insomnia, unspecified; E78.5 Hyperlipidemia, unspecified; F98.8 Other specified behavioral and emotional disorders with onset usually occurring in childhood and adolescence; F84.0 Autistic disorder; E66.9 Obesity, unspecified; F90.9 Attention-deficit hyperactivity disorder, unspecified type; X78.9XXA Intentional self-harm by unspecified sharp object, initial encounter; S61.512A Laceration without foreign body of left wrist, initial encounter; Y93.89 Activity, other specified; Y92.89 Other specified places as the place of occurrence of the external cause; Z79.899 Other long term (current) drug therapy; Z88.8 Allergy status to other drugs, medicaments and biological substances; Z87.891 Personal history of nicotine dependence; Y99.8 Other external cause status; Z68.41 Body mass index [BMI] 40.0-44.9, adult; Z91.52 Personal history of nonsuicidal self-harm
CPT/HCPCS: 80048; 80061; 80164; 80307; 81003; 83036; 84439; 84443; 84703; 85025; 90715; G0480; J0401

== ENCOUNTER 2024-05-20 19:32 | Emergency (ER) | payer MEDICAID, OTHER ==
[~2024-05-20] VITALS: Ht 167.6 cm; Wt 109.1 kg
[~2024-05-20 19:32] MED LIST changes: -ARIP15TA27 PO; +ARIP400S IM; +HALO100A IM; -LEVO75CA5 PO; -METF-1211 PO; +METF-81 PO; +PRAZ1 PO; +PROP10TA73 PO; +QUET100T PO; +QUET100T34 PO; -QUET300T19 PO
[2024-05-20] MEDS ORDERED: IBUP-1493 PO (19:41)
[2024-05-20 19:56] VITALS: BP 106/76; PULSE 66; RESP 18; TEMP 98.4; O2SAT 99
[2024-05-20] MEDS: IBUPROFEN 800 MG TABLET PO ONE (19:56)
== END 2024-05-20 19:59 | disposition home or self-care (01) ==
LOC: EMS 19:33
DX: S00.03XA Contusion of scalp, initial encounter (principal); F25.9 Schizoaffective disorder, unspecified; E03.9 Hypothyroidism, unspecified; F41.9 Anxiety disorder, unspecified; F31.9 Bipolar disorder, unspecified; E11.9 Type 2 diabetes mellitus without complications; I10 Essential (primary) hypertension; E66.9 Obesity, unspecified; F17.210 Nicotine dependence, cigarettes, uncomplicated; Z79.899 Other long term (current) drug therapy; Z87.440 Personal history of urinary (tract) infections; Z91.52 Personal history of nonsuicidal self-harm; W22.8XXA Striking against or struck by other objects, initial encounter; Y93.89 Activity, other specified; Y92.89 Other specified places as the place of occurrence of the external cause; Y99.8 Other external cause status
CPT/HCPCS: 99282; Z7502; Z7610

== ENCOUNTER 2024-07-24 18:23 | Emergency (ER) | payer OTHER ==
[~2024-07-24] VITALS: Ht 162.6 cm; Wt 109.1 kg
[~2024-07-24 18:23] MED LIST changes: +IBUP-1493 PO
[2024-07-24 18:49] LABS: BASOPHILS % (AUTO) 0.4 % (0.0-2.0); EOSINOPHILS % (AUTO) 0.9 % (1.0-6.0); HEMATOCRIT 36.8 % (36-46); HEMOGLOBIN 12.3 g/dL (12.0-16.0); LYMPHOCYTES # (AUTO) 2.4 K/uL (1.0-4.8); LYMPHOCYTES % (AUTO) 29.3 % (22.0-44.0); MEAN CORPUSCULAR HEMOGLOBIN 31.4 pg (26.0-34.0); MEAN CORPUSCULAR HGB CONC 33.3 G/dL (31.0-37.0); MEAN CORPUSCULAR VOLUME 94 fL (80-100); MONOCYTES # (AUTO) 0.8 K/uL (0.1-1.0); MONOCYTES % (AUTO) 10.4 % (2.0-9.0); NEUTROPHILS # (AUTO) 4.7 K/uL (1.8-7.7); PLATELET COUNT (AUTO) 262 K/uL (150-450); RED CELL DISTRIBUTION WIDTH 13.2 % (11.5-14.5)
[2024-07-24 18:59] LABS: ANION GAP 8 mmol/L (8-16); CALCIUM, TOTAL 9.3 mg/dL (8.8-10.5); CARBON DIOXIDE 27 mmol/L (22-29); CHLORIDE 102 mmol/L (98-107); CREATININE 0.55 mg/dL (0.60-1.30); GLOMERULAR FILTR. RATE CALC > 60 mL/min (>60); GLUCOSE,RANDOM 137 mg/dL (70-110); POTASSIUM 4.2 mmol/L (3.5-5.1); SODIUM SERUM 137 mmol/L (136-145); UREA NITROGEN, BLOOD 16 mg/dL (7-18)
[2024-07-24 19:02] VITALS: TEMP 98.2
[2024-07-24 19:03] VITALS: BP 100/58; PULSE 71; RESP 18; O2SAT 96
[2024-07-24 19:16] LABS: ALCOHOL, BLOOD (SERUM) < 3 mg/dL (0-10)
[2024-07-24] MEDS: DiphenhydrAMINE HCL 50 MG/ML VIAL IM ONE (19:32)
[2024-07-24] MEDS: HALOPERIDOL LACTATE 5 MG/ML VIAL IM ONE (19:32)
[2024-07-24] MEDS: LORazepam 2 MG/ML VIAL IM ONE (19:33)
[2024-07-24 19:53] LABS: COVID AG,FIA SOURCE NASAL SWAB
[2024-07-24 20:19] LABS: SARS-COV2 (COVID) ANTIGEN,FIA Negative (Negative)
== END 2024-07-24 20:54 | disposition home or self-care (01) ==
LOC: EMS 18:23
DX: F25.1 Schizoaffective disorder, depressive type (principal); F41.9 Anxiety disorder, unspecified; E11.9 Type 2 diabetes mellitus without complications; I10 Essential (primary) hypertension; E03.9 Hypothyroidism, unspecified; F31.9 Bipolar disorder, unspecified; F17.210 Nicotine dependence, cigarettes, uncomplicated; Z88.8 Allergy status to other drugs, medicaments and biological substances; Z87.440 Personal history of urinary (tract) infections; Z79.899 Other long term (current) drug therapy; Z20.822 Contact with and (suspected) exposure to COVID-19
CPT/HCPCS: 99285; 87426; 80048; 85025; 36415; 96372; G0480

== ENCOUNTER 2025-01-01 10:04 | Emergency (ER) | payer MEDICAID, OTHER ==
[~2025-01-01] VITALS: Ht 162.6 cm; Wt 104.5 kg
[~2025-01-01 10:04] MED LIST changes: -ARIP400S IM; -HALO100A IM; -IBUP-1493 PO; +LEVO25TA9 PO; +LITH300C3 PO; +METF-1211 PO; -METF-81 PO; -PRAZ1 PO; -PROP10TA10 PO; -PROP10TA73 PO; -QUET100T PO; -QUET100T34 PO
[2025-01-01 10:10] VITALS: BP 125/91; PULSE 77; RESP 16; TEMP 98.5; O2SAT 98
[2025-01-01] MEDS ORDERED: METF-81 PO (10:12)
[2025-01-01] MEDS ORDERED: PROP10TA72 PO (10:12)
[2025-01-01] MEDS ORDERED: HALO10TA21 PO (10:12)
[2025-01-01] MEDS ORDERED: ARIP400S6 IM (10:12)
[2025-01-01 10:30] LABS: GLUCOMETER DEV NAME(LOC) ER.7; GLUCOSE,POINT OF CARE 114 MG/DL (70-110)
[2025-01-01] MEDS: IBUPROFEN 400 MG TABLET PO ONE (10:59)
[2025-01-01] MEDS: ACETAMINOPHEN 500 MG TABLET PO ONE (10:59)
[2025-01-01] MEDS ORDERED: ACET-3385 PO (11:57)
[2025-01-01] MEDS ORDERED: IBUP-1506 PO (11:57)
== END 2025-01-01 12:02 | disposition home or self-care (01) ==
LOC: EMS 10:05
DX: S93.401A Sprain of unspecified ligament of right ankle, initial encounter (principal); E03.9 Hypothyroidism, unspecified; E11.9 Type 2 diabetes mellitus without complications; F25.9 Schizoaffective disorder, unspecified; F31.9 Bipolar disorder, unspecified; F41.9 Anxiety disorder, unspecified; I10 Essential (primary) hypertension; F17.210 Nicotine dependence, cigarettes, uncomplicated; Z98.890 Other specified postprocedural states; Z79.899 Other long term (current) drug therapy; Z88.5 Allergy status to narcotic agent; W19.XXXA Unspecified fall, initial encounter; Y93.02 Activity, running; Y92.89 Other specified places as the place of occurrence of the external cause; Y99.8 Other external cause status
CPT/HCPCS: 82962; 99283

== ENCOUNTER 2025-01-22 14:40 | Emergency (ER) | payer OTHER ==
[~2025-01-22] VITALS: Ht 165.1 cm; Wt 90.9 kg
[~2025-01-22 14:40] MED LIST changes: +ACET-3385 PO; +ARIP400S6 IM; +HALO10TA21 PO; +IBUP-1506 PO; -LEVO25TA9 PO; -LITH300C3 PO; +METF-81 PO; +PROP10TA72 PO
[2025-01-22 14:44] VITALS: TEMP 98
[2025-01-22] MEDS ORDERED: TRAZ-257 PO (14:48)
[2025-01-22 18:42] VITALS: BP 112/72; PULSE 68; RESP 18; O2SAT 100
== END 2025-01-22 18:46 | disposition home or self-care (01) ==
LOC: EMS 14:40
DX: H92.02 Otalgia, left ear (principal); I10 Essential (primary) hypertension; E03.9 Hypothyroidism, unspecified; F41.9 Anxiety disorder, unspecified; F31.9 Bipolar disorder, unspecified; F20.9 Schizophrenia, unspecified; F17.210 Nicotine dependence, cigarettes, uncomplicated; F84.5 Asperger's syndrome; Z87.440 Personal history of urinary (tract) infections; Z79.899 Other long term (current) drug therapy
CPT/HCPCS: 82962; 99282; Z7502

== ENCOUNTER 2025-04-11 14:49 | Emergency (ER) | payer OTHER ==
[~2025-04-11] VITALS: Ht 172.7 cm; Wt 80.0 kg
[~2025-04-11 14:49] MED LIST changes: -ACET-3385 PO; -ARIP400S6 IM; -DIVA-112 PO; -HALO10TA21 PO; -IBUP-1506 PO; -METF-1211 PO; -METF-81 PO; -PROP10TA72 PO; +TRAZ-257 PO
[2025-04-11 15:26] VITALS: BP 119/57; PULSE 87; RESP 18; TEMP 98.2; O2SAT 95
== END 2025-04-11 16:22 | disposition left against medical advice (07) ==
LOC: EMS 14:52
DX: R45.1 Restlessness and agitation (principal); Z53.21 Procedure and treatment not carried out due to patient leaving prior to being seen by health care provider
CPT/HCPCS: 99281; Z7502